=== PATIENT | female | born 1950 | race Caucasian/White ===

== ENCOUNTER 2020-09-13 08:46 | Emergency (ER) | payer OTHER ==
[~2020-09-13] VITALS: Ht 160 cm; Wt 63.5 kg
[2020-09-13] MEDS ORDERED: SODIUM CHLORIDE 0.9% 1,000 ML IV ONE ×2 (09:00)
[2020-09-13 09:10] LABS: Basophils # (auto) 0 10 ^3/uL (0-0.2); Basophils % (auto) 0.8 % (0.0-2.0); Eosinophils # (auto) 0.2 10 ^3/uL (0-0.8); Hematocrit 38.4 % (36.0-46.0); Hemoglobin 12.4 g/dL (12.2-16.2); Lymphocytes # (auto) 2.1 10 ^3/uL (0.4-5.4); Lymphocytes % (auto) 34.7 % (10.0-50.0); Mean Corpuscular Hgb Conc. 32.3 g/dL (32.0-36.0); Mean Corpuscular Volume 95.8 fL (80.0-100.0); Monocytes # (auto) 0.3 10 ^3/uL (0-1.3); Monocytes % (auto) 5.2 % (0.0-12.0); Neutrophils # (auto) 3.4 10 ^3/uL (1.6-8.6); Neutrophils % (auto) 56.3 % (37.0-80.0); Nucleated Red Blood Cells % 0.2 %; Platelet Count (auto) 246 10^3/uL (140-450); Red Blood Cells 4.01 10^6/uL (4.0-5.20); Red Cell Distribution Width 14.5 % (11.8-14.3)
[2020-09-13 09:31] LABS: Alanine Aminotransferase 17 U/L (13-56); Albumin 4.2 g/dL (3.4-5.0); Anion Gap 6 (5-15); Aspartate Aminotransferase 17 U/L (15-37); BUN/Creatinine Ratio 27.9; Blood Urea Nitrogen 19 mg/dL (7-18); Calcium 9.1 mg/dL (8.5-10.1); Carbon Dioxide 27 mmol/L (21-32); Chloride 110 mmol/L (98-107); GFR African American 110 mL/min; GFR Non-African American 91 mL/min; Glucose 176 mg/dL (74-106); Potassium 3.4 mmol/L (3.5-5.1); Sodium 143 mmol/L (136-145)
[2020-09-13 09:36] LABS: Alkaline Phosphatase 69 U/L (45-117); Bilirubin, Total 0.4 mg/dL (0.2-1.0)
[2020-09-13 09:44] LABS: Partial Thromboplastin Time 24.3 sec (23.0-31.2)
[2020-09-13] MEDS ORDERED: cefTRIAXone 1GM/50ML D5W 50 ML IV ONE (12:45)
[2020-09-13] MEDS ORDERED: AZITHROMYCIN 500MG/ 250ML 250 ML IV ONE (12:45)
[2020-09-13 14:01] VITALS: BP 153/52
[2020-09-13 14:47] LABS: Alcohol, Urine < 3.0 mg/dL (0-10); Amphetamine Screen, Urine POSITIVE (NEGATIVE); Barbiturate Scree,Urine NEGATIVE (NEGATIVE); Benzodiazephine Screen, Urine POSITIVE (NEGATIVE); Cannabinoid Screen, Urine NEGATIVE (NEGATIVE); Cocaine Screen, Urine NEGATIVE (NEGATIVE); Opiate Scree,Urine NEGATIVE (NEGATIVE); Phencyclidine Screen, Urine NEGATIVE (NEGATIVE)
[2020-09-13 14:48] LABS: Urine Bacteria NONE SEEN /hpf (None Seen); Urine Blood Negative /uL (Negative); Urine Mucus FEW (None Seen); Urine Specific Gravity 1.018 (1.001-1.035); Urine WBC 5 /hpf (0 - 5)
[2020-09-13] MEDS ORDERED: POTASSIUM EFFERVESENT TAB 25 MEQ PO ONE (15:00)
== END 2020-09-13 15:19 | disposition home or self-care (01) ==
LOC: ER 08:46 → EDBD 08:46 → ER 15:19
DX: J18.9 Pneumonia, unspecified organism (principal); E11.65 Type 2 diabetes mellitus with hyperglycemia; E86.0 Dehydration; E87.6 Hypokalemia; I10 Essential (primary) hypertension; F17.210 Nicotine dependence, cigarettes, uncomplicated; Z20.828 Contact with and (suspected) exposure to other viral communicable diseases
CPT/HCPCS: 36415; 70450; 71045; 80053; 80307; 81001; 83880; 84484; 85025; 85610; 85730; 87426; 93005; 96361; 96365; 96366; 96368; 99284; C9803; J0456; J0696; U0003

== ENCOUNTER 2025-02-07 14:43 | Inpatient (IN) | payer OTHER ==
[~2025-02-07] VITALS: Ht 157.5 cm; Wt 67.3 kg
[~2025-02-07 14:43] MED LIST: BENZ1TAB6 PO; DAPA1TAB4 PO; DONE1TAB88 PO; EZET-10 PO; HYDR50TA32 PO; LAMO25TA27 PO; METF-372 PO; METO25TA93 PO; PANT40T PO; QUET100T47 PO; SIMV40TA18 PO; TOPI50TA53 PO; TRAZ1TAB12 PO
--- NOTE | 2025-02-07 14:53 | ECG ---
[facility] Test Date: 2025-02-07 Test Time: 14:51:10 Pat Name: STEVIE VEE Department: ED Room: 0221T Gender: F Feed Management Advisor: faisal : 1950 Requested By: CHIN PARKER Order Number: [id number] Reading MD: Bulmaro Jaramillo Measurements Intervals [place] Rate: 62 P: 42 NM: 139 QRS: -11 QRSD: 105 T: 15 QT: 455 QTc: 462 Interpretive Statements Sinus rhythm Anteroseptal infarct, age indeterminate Electronically Signed On 02-10-2025 12:57:49 PDT by Bulmaro Jaramillo Please click the below link to view image of tracing.
[2025-02-07] MEDS: SODIUM CHLORIDE 0.9% 1,000 ML IV ONE (15:00)
[2025-02-07 15:17] LABS: Basophils # (auto) 0.1 10 ^3/uL (0-0.2); Basophils % (auto) 0.7 % (0.0-2.0); Eosinophils # (auto) 0.2 10 ^3/uL (0-0.8); Eosinophils % (auto) 3.1 % (0.0-7.0); Hematocrit 38.8 % (36.0-46.0); Hemoglobin 12.9 g/dL (12.2-16.2); Lymphocytes # (auto) 2.1 10 ^3/uL (0.4-5.4); Lymphocytes % (auto) 26.7 % (10.0-50.0); Mean Corpuscular Hemoglobin 30.1 pg (28.0-32.0); Mean Corpuscular Hgb Conc. 33.2 g/dL (32.0-36.0); Mean Corpuscular Volume 90.8 fL (80.0-100.0); Monocytes # (auto) 0.6 10 ^3/uL (0-1.3); Monocytes % (auto) 8.3 % (0.0-12.0); Neutrophils # (auto) 4.7 10 ^3/uL (1.6-8.6); Neutrophils % (auto) 61.2 % (37.0-80.0); Platelet Count (auto) 229 10^3/uL (140-450); Red Blood Cells 4.27 10^6/uL (4.0-5.20); White Blood Cell 7.7 10^3/uL (4.4-10.8)
[2025-02-07 15:26] LABS: Chloride 103 mmol/L (98-107); Sodium 140 mmol/L (136-145)
[2025-02-07 15:27] LABS: Anion Gap 10 (5-15); Calcium 9.8 mg/dL (8.7-10.4); Carbon Dioxide 27 mmol/L (20-31)
[2025-02-07 15:30] VITALS: PULSE 51; RESP 16; O2SAT 94
[2025-02-07 15:32] LABS: BUN/Creatinine Ratio 16.1 (10.0-20.0); Blood Urea Nitrogen 20 mg/dL (9-23)
[2025-02-07 15:33] LABS: Blood Alcohol < 3.0 mg/dL (<10); Glucose 131 mg/dL (74-106); Potassium 3.1 mmol/L (3.5-5.1)
--- NOTE | 2025-02-07 15:33 | ED.PDOC ---
History of Present Illness HPI Comments This is a 74-year-old female who comes in with chief complaint of generalized weakness times approximately two weeks. The patient's symptoms seemed to worsened today and the patient was also having some dizziness. When the paramedics transported the patient she stated that she has been having frequent falls. She did have a normal blood pressure and an Accu-Chek was 141. She currently lives with her family and seems to be somewhat confused in giving us her history. She does admit to vaping and it was unclear if she has been drinking any alcohol. Chief Complaint: General Weakness Time Seen by MD: 14:45 Reviewed Notes: Nurses Notes, Pointing Machine Operator Notes, Medications Allergies: Coded Allergies: NO KNOWN ALLERGIES (Unverified , 09/13/20) Information Source: Patient (The patient was somewhat confused), Emergency Med Personnel Mode of Arrival: EMS Severity: Moderate Timing: Weeks Duration: Since onset Prehospital treatment: 12 Lead EKG, Accucheck (141), Recovery Manager, IVF Associated signs and symptoms No associated nausea or vomiting but the patient was having some dizziness Past Medical History PAST MEDICAL HISTORY: DM, High Lipids, HTN Surgical History: Cholecystectomy, Tonsillectomy Surgical History (Other): Cataract surgery PRESIDING STEWARD History: No Pertinent PRESIDING STEWARD History Family History Family History: Reviewed,noncontributory to illness Social History Smoker: Other (VAPE) Alcohol: Denies ETOH Use Drugs: Denies Drug Use Lives In: Home Constitutional: reports: weakness; denies: chills, diaphoresis, fatigue, fever, malaise, sweats, others EENTM: denies: blurred vision, double vision, ear bleeding, ear discharge, ear drainage, ear pain, ear ringing, eye pain, eye redness, hearing loss, mouth pain, mouth swelling, nasal discharge, nose bleeding, nose congestion, nose pain, photophobia, tearing, throat pain, throat swelling, voice changes, others Respiratory: denies: cough, hemoptysis, orthopnea, SOB at rest, shortness of breath, SOB with excertion, stridor, wheezing, others Cardiovascular: denies: chest pain, dizzy spells, diaphoresis, Dyspnea on exertion, edema, irregular heart beat, left arm pain, lightheadedness, palpitations, PND, syncope, others Gastrointestinal: denies: abdomen distended, abdominal pain, blood streaked bowels, constipated, diarrhea, dysphagia, difficulty swallowing, hematemesis, melena, nausea, poor appetite, poor fluid intake, rectal bleeding, rectal pain, vomiting, others Genitourinary: denies: abnormal vagina bleeding, burning, dyspareunia, dysuria, flank pain, frequency, hematuria, incontinence, pain, , vagina discharge, urgency, others Neurological: reports: dizziness, headache; denies: fainting, left sided numbne ss, left sided weakness, numbness, paresthesia, pre-existing deficit, right sided numbness, right sided weakness, seizure, speech problems, tingling, tremors, weakness, others Musculoskeletal: denies: back pain, gout, joint pain, joint swelling, muscle pain, muscle stiffness, neck pain, others Integumetry: denies: bruises, change in color, change in hair/nails, dryness, laceration, lesions, lumps, rash, wounds, others Allergic/Immunocompromised: denies: Difficulty Healing, Frequent Infections, Hives, Itching, others Hematologic/Lymphatic: denies: anemia, blood clots, easy bleeding, easy bruising, swollen glands, others Endocrine: denies: excessive hunger, excessive sweating, excessive thirst, excessive urination, flushing, intolerance to cold, intolerance to heat, unexplained weight gain, unexplained weight loss, others Psychiatric: denies: anxiety, bipolar disorder, depression, hopeless, panic disorder, schizophrenia, sleepless, suicidal, others Physical Exam General Appearance: Moderate Distress HEENT: Pale Conjuntivae (L), Pale Conjuntivae (R), Pharynx Normal, TMs Normal, Other (Mild bruising to the facial area) Neck: Full Range of Motion, Non-Tender, Normal, Normal Inspection Respiratory: Chest Non-Tender, Lungs Clear, No Accessory Muscle Use, No Respiratory Distress, Normal Breath Sounds Cardiovascular: No Edema, No JVD, No Murmur, No Gallop, Normal Peripheral Pulses, Regular Rate/Rhythm Breast Exam: Deferred Gastrointestinal: No Organomegaly, Non Tender, No Pulsatile Mass, Normal Bowel Sounds, Soft Genitalia: Deferred Pelvic: Deferred Rectal: Deferred Extremities: No calf tenderness, Normal capillary refill, No pedal edema Musculoskeletal : Apperance: Normal Neurologic: hotel server II-XII nml as Tested, Motor Weakness, No Sensory Deficits, Other (The patient was somewhat confused) Cerebellar Function: Normal Reflexes: Normal Skin: Dry, Pallor, Warm Lymphatic: No Adenopathy Was a procedure done? Was a procedure done?: No EKG EKG : Pulse Rate (adult): 62 [place]: Normal Cardiac Rhythm: NSR Block: None ST: Nonsp Differential Dx Considerations may include: Sepsis, dehydration, electrolyte imbalance, UTI, alcohol intoxication X-Ray, Labs, Meds, VS Vital Signs Date Time Temp Pulse Resp B/P (MAP) Pulse Ox O2 Delivery O2 Flow Rate FiO2 02/07/25 18:22 102/30 02/07/25 18:17 16 93 Nasal Cannula* 2 28 02/07/25 18:00 57 16 102/30 (54) 97 02/07/25 16:00 44 02/07/25 15:37 62 02/07/25 15:30 51 16 94 Nasal Cannula* 6 44 02/07/25 15:30 98.1 51 16 114/31 (58) 94 98.1 02/07/25 14:54 98.1 65 18 131/72 (91) 98 98.1 02/07/25 14:51 62 Lab Test 02/07/25 15:57 02/07/25 15:03 02/07/25 14:55 Range/Units Troponin I High Sensitivity 8 8 </=34 ng/L White Blood Count 7.7 4.4-10.8 10^3/uL Red Blood Count 4.27 4.0-5.20 10^6/uL Hemoglobin 12.9 12.2-16.2 g/dL Hematocrit 38.8 36.0-46.0 % Mean Corpuscular Volume 90.8 80.0-100.0 fL Mean Corpuscular Hemoglobin 30.1 28.0-32.0 pg Mean Corpuscular Hemoglobin Concent 33.2 32.0-36.0 g/dL Red Cell Distribution Width 16.0 H 11.8-14.3 % Platelet Count 229 140-450 10^3/uL Mean Platelet Volume 7.8 6.9-10.8 fL Neutrophils (%) (Auto) 61.2 37.0-80.0 % Lymphocytes (%) (Auto) 26.7 10.0-50.0 % Monocytes (%) (Auto) 8.3 0.0-12.0 % Eosinophils (%) (Auto) 3.1 0.0-7.0 % Basophils (%) (Auto) 0.7 0.0-2.0 % Neutrophils # (Auto) 4.7 1.6-8.6 10 ^3/uL Lymphocytes # (Auto) 2.1 0.4-5.4 10 ^3/uL Monocytes # (Auto) 0.6 0-1.3 10 ^3/uL Eosinophils # (Auto) 0.2 0-0.8 10 ^3/uL Basophils # (Auto) 0.1 0-0.2 10 ^3/uL Nucleated Red Blood Cells 0.0 % Sodium Level 140 136-145 mmol/L Potassium Level 3.1 L 3.5-5.1 mmol/L Chloride Level 103 98-107 mmol/L Carbon Dioxide Level 27 20-31 mmol/L Anion Gap 10 5-15 Blood Urea Nitrogen 20 9-23 mg/dL Creatinine 1.24 H 0.550-1.02 mg/dL Glomerular Filtration Rate Calc 46 >90 mL/min BUN/Creatinine Ratio 16.1 10.0-20.0 Serum Glucose 131 H 74-106 mg/dL Lactic Acid Level 1.9 0.4-2.0 mmol/L Calcium Level 9.8 8.7-10.4 mg/dL B-Type Natriuretic Peptide 82.58 0-100 pg/mL Plasma/Serum Blood Alcohol < 3.0 <10 mg/dL POC Glucose 141 H 70-106 mg/dl Current Medications Medications (Trade) Dose Ordered Sig/Jose Route Start Time Stop Time Status Last Admin Sodium Chloride 1,000 ml @ 150 mls/hr Q6H40M ONCE IV 02/07/25 15:00 02/07/25 21:39 02/07/25 15:00 Potassium Chloride 50 ml @ 25 mls/hr ONCE ONCE IV 02/07/25 17:30 02/07/25 19:29 02/07/25 17:49 Ipratropium [place] (Atrovent Medneb) 0.5 mg ONCE ONCE NEB 02/07/25 17:45 02/07/25 18:04 DC 02/07/25 18:17 Albuterol (Ventolin Medneb) 2.5 mg ONCE ONCE NEB 02/07/25 17:45 02/07/25 18:04 DC 02/07/25 18:17 Ceftriaxone Sodium 50 ml @ 100 mls/hr ONCE ONCE IV 02/07/25 18:00 02/07/25 18:29 DC 02/07/25 18:21 Methylprednisolone Sodium Succinate (Solu Medrol) 80 mg ONCE ONCE IV 02/07/25 18:00 02/07/25 18:04 DC 02/07/25 18:21 Furosemide (Lasix Injection) 40 mg ONCE ONCE IV 02/07/25 18:00 02/07/25 18:04 DC 02/07/25 18:22 TECHNIQUE: Single AP portable chest radiograph was obtained. IMPRESSION: 1. Blunting of the costophrenic angles bilaterally, suspected small bilateral pleural effusions with overlying atelectasis. 2. Prominence of the pulmonary vasculature suggesting a degree of pulmonary vascular congestion. Correlate with clinical findings. Procedure: CT HEAD WITHOUT CONTRAST Impression: No evidence of acute intracranial abnormality. The patient's CBC is within normal limits The chemistry panel shows hypokalemia at 3.1 The patient was glucose is within normal limits The patient was being given potassium here in the emergency department's The patient was creatinine level is 1.24 The patient's diagnosis metabolic encephalopathy A Millre catheter has been ordered We are still awaiting the urine test on this patient The patient was being admitted to the hospitalist. Images Reviewed?: Images reviewed and evaluated by me Time of 1ST Reevaluation: 15:36 Reevaluation 1ST: Unchanged Patient Education/Counseling: Diagnosis, Treatment, Prognosis Family Education/Counseling: No Family Present Departure 1 Departure Time of Disposition: 19:07 Impression: Primary Impression: Metabolic encephalopathy Additional Impressions: Generalized weakness Pulmonary vascular congestion Disposition: 09 ADMITTED INPATIENT Admit to: Tele Condition: Fair Critical Care Note Critical Care Time?: Yes (45 min-critical care time only) Stability Stability form required: Yes Unstable for transfer: Telemetry monitoring (Telemetry monitoring required), ED Physician Assesment (Clinical assesment) Heart Score Heart Score: Heart Score Response (Comments) Value History N/A 0 EKG N/A 0 Age N/A 0 Risk Factors N/A 0 Troponin N/A 0 Total 0 I personally scribed for CHIN PARKER MD ([email or web address]) on 02/07/25 at 16:34. Electronically submitted by Anayeli Aldrich (JO ANN). I personally scribed for CHIN PARKER MD ([email or web address]) on 02/07/25 at 18:05. Electronically submitted by Anayeli Aldrich (JO ANN). CHIN PARKER MD Feb 07, 2025 15:33
--- NOTE | 2025-02-07 16:16 | DVH ---
CLINICAL INFORMATION: 74 years old, Female; weakness. TECHNIQUE: Single AP portable chest radiograph was obtained. COMPARISON: CHEST PORTABLE on DOS: 09/13/20 FINDINGS: Lungs: Minimal blunting of the costophrenic angles bilaterally, possible small bilateral pleural effu sions with overlying atelectasis. Cardiac: Cardiac silhouette is at the upper limits of normal in size, likely accentuated due to shirlene ble AP technique. Pulmonary vasculature: Mild prominence of the pulmonary vasculature. Mediastinum/dominique: Moderate atherosclerotic calcification of the aortic arch. Bones: No acute osseous abnormality identified. Other: No other significant findings. IMPRESSION: 1. Blunting of the costophrenic angles bilaterally, suspected small bilateral pleural effusions with overlying atelectasis. 2. Prominence of the pulmonary vasculature suggesting a degree of pulmonary vascular congestion. Red elate with clinical findings.
[2025-02-07] MEDS ORDERED: POTASSIUM CHL 20MEQ/100ML 100 ML IV ONE (17:15)
--- NOTE | 2025-02-07 17:38 | DVH ---
Procedure: CT HEAD WITHOUT CONTRAST Study Date and Requested Time: 02/07/2025 05:02 PM History: weakness Comparison: HEAD WITHOUT CONTRAST on DOS: 09/13/20 Dose: CTDI: 57.8 mGy DLP: 1139.09 mGycm Technique: Multiplanar images obtained through the brain without intravenous contrast. Findings: Normal brain volume and formation. Mild chronic small vessel ischemic changes. Bilateral basal gangli a physiologic calcification. No hemorrhages, masses, mass effect, midline shift, herniation or cytotoxic edema following a large v ascular territory. No intra-axial or extra-axial fluid collections. No evidence of hydrocephalus. The basal cisterns are patent. The pituitary gland, sella and parasellar regions are unremarkable. The cerebellar tonsils are in nor mal position. The cerebellum is unremarkable. The orbits and globes are unremarkable. The paranasal sinuses and mastoids are clear. There are no wo rrisome calvarial lesions. Impression: No evidence of acute intracranial abnormality.
[2025-02-07] MEDS: POTASSIUM CHL 20MEQ/50ML 50 ML IV ONE (17:49)
[2025-02-07] MEDS: ALBUTEROL SULF 2.5 MG/0.5ML(0.5%) NEB SOLN NEB ONE (18:17)
[2025-02-07] MEDS: IPRATROPIUM BROM 0.5 MG/2.5ML INH SOL NEB ONE (18:17)
[2025-02-07] MEDS: IPRATROPIUM BROM 0.5 MG/2.5ML INH SOL ONE (18:18)
[2025-02-07] MEDS: ALBUTEROL SULF 2.5 MG/0.5ML(0.5%) NEB SOLN ONE (18:18)
[2025-02-07] MEDS: cefTRIAXone 1GM/50ML D5W 50 ML IV ONE (18:21)
[2025-02-07] MEDS: methylPREDNISolone SOD SUCC 125 MG/2 ML VL IV ONE (18:21)
[2025-02-07] MEDS: FUROSEMIDE 40 MG/4 ML VIAL IV ONE (18:22)
[2025-02-07 19:28] LABS: Urine Bacteria None Seen /hpf (None Seen)
[2025-02-07 19:30] VITALS: PULSE 56; RESP 15; O2SAT 90
[2025-02-07 19:33] LABS: Urine Blood Negative /uL (Negative); Urine Clarity Clear (Clear); Urine Color Light-Yellow (Yellow); Urine Protein, UAD Negative (Negative); Urine Specific Gravity 1.012 (1.001-1.035); Urine Squamous Epithelial Cell None Seen /hpf (<5); Urine Urobilinogen Normal (Negative); Urine WBC 1 /HPF (0-5)
[2025-02-07 19:47] LABS: Amphetamine Screen, Urine Neg (NEGATIVE); Barbiturate Scree,Urine Neg (NEGATIVE); Benzodiazephine Screen, Urine Neg (NEGATIVE); Cannabinoid Screen, Urine Neg (NEGATIVE); Cocaine Screen, Urine Neg (NEGATIVE); Opiate Scree,Urine Neg (NEGATIVE); Phencyclidine Screen, Urine Neg (NEGATIVE)
[2025-02-07 20:12] LABS: COVID19 ANTIGEN SOFIA FIA NEGATIVE (NEGATIVE); Rapid Influenza A Negative (Negative); Rapid Influenza B Negative (Negative)
[2025-02-07 22:07] LABS: Phosphorus 3.4 mg/dL (2.4-5.1)
--- NOTE | 2025-02-07 23:06 | DVHHPRES ---
History of Present Illness Resident Creating Document: TESSY DANG RESIDENT History of Present Illness Louisa Caldwell is a 74-year-old female presented to the ED with a chief complaint of cognitive and memory deficit and generalized weakness. Patient's has been reports that since the last 3-4 months patient has been having declining cognition and worsening memory function but it has gotten worse in the last 2 weeks with the associated difficulty walking with the patient taking short shuffling steps, associated with the flu-like symptoms of body aches and generalized weakness. Patient reports that she forgets recent things and her long-term memory is intact. Past medical history of COPD, hypertension, heart failure, paroxysmal AFib (chads Vasc 4 /Has bled 2), major depressive disorder, bipolar disorder Past surgical history: None Social history: Patient is an ex-smoker with 45 pack year smoking history, currently vapes nicotine, denies alcohol or any other drug use Home medications: Patient does not remember the medications and following medications were seen on the med reconciliation, simvastatin, Trelegy inhaler, lamotrigine, trazodone 150 mg, sertraline 150 mg, Farxiga 10 mg, quetiapine 50 q.d., 400 Q HS, donepezil 10 mg, metoprolol succinate 25 mg once daily, metformin 1000 mg b.i.d., ezetimibe 10 mg, topiramate 50 mg Past Medical History As per HPI Past Surgical History As per HPI Family History Patient was adopted and does not know about her family history Review of Systems Review of Systems Patient complains of feeling weak Denies nausea, vomiting, dysuria, headache, chest pain, shortness of breath Allergies: Coded Allergies: NO KNOWN ALLERGIES (Unverified , 09/13/20) Exam Vital Signs Vital Signs Date Time Temp Pulse Resp B/P (MAP) Pulse Ox O2 Delivery O2 Flow Rate FiO2 02/07/25 20:00 54 02/07/25 18:22 102/30 02/07/25 18:17 16 93 Nasal Cannula* 2 28 02/07/25 15:30 98.1 98.1 Exam Constitutional: Patient is alert and oriented to place, person, month but disoriented to day, date, year Gen - no pallor, no icterus, no cyanosis, no clubbing, no LAD, no edema . Skin - Patients skin is warm and dry.. HEENT - normocephalic, atraumatic, moist mucous membranes. Neck - full ROM, no LAD, JVP waveform is not seen. Pulmonary - B/L vesicular breath sounds. no crackles , no wheezing, no stridor. cardiovascular - normal S1,S2 heard. no murmurs heard. peripheral pulses normal radial 2+, pedal 2+. capillary refill normal <2 secs. GI - soft abdomen. no tenderness to deep palpation . no hepatospleenomegaly. Neurological - Patient is A/O X 3 . Bilateral upper extremity strength 4/5, bilateral lower extremity strength 5/5, no facial droop, normal speech, no tremor, no sensory deficiets. Labs/Xrays Labs Test 02/07/25 18:40 02/07/25 15:57 02/07/25 15:03 02/07/25 14:55 Range/Units Urine Color Light-yellow Yellow Urine Clarity Clear Clear Urine pH 6.0 5.0-9.0 Urine Specific [place] 1.012 1.001-1.035 Urine Protein Negative Negative Urine Ketones Negative Negative Urine Blood Negative Negative /uL Urine Nitrite Negative Negative Urine Bilirubin Negative Negative Urine Urobilinogen Normal Negative mg/dL Urine Leukocyte Esterase Negative Negative /uL Urine RBC <1 0 - 4 /hpf Urine Microscopic WBC 1 0-5 /HPF Urine Squamous Epithelial Cells None seen <5 /hpf Urine Bacteria None seen None Seen /hpf Urine Glucose Normal Normal mg/dL Urine Opiates Screen Neg NEGATIVE Urine Fentanyl Screen Neg NEGATIVE Urine Barbiturates Screen Neg NEGATIVE Urine Phencyclidine Screen Neg NEGATIVE Urine Amphetamines Screen Neg NEGATIVE Urine Benzodiazepines Screen Neg NEGATIVE Urine Cocaine Screen Neg NEGATIVE Urine Cannabinoids Screen Neg NEGATIVE Influenza Type A Antigen Negative Negative Influenza Type B Antigen Negative Negative SARS-CoV-2 Antigen (Rapid) Negative NEGATIVE Troponin I High Sensitivity 8 </=34 ng/L White Blood Count 7.7 4.4-10.8 10^3/uL Red Blood Count 4.27 4.0-5.20 10^6/uL Hemoglobin 12.9 12.2-16.2 g/dL Hematocrit 38.8 36.0-46.0 % Mean Corpuscular Volume 90.8 80.0-100.0 fL Mean Corpuscular Hemoglobin 30.1 28.0-32.0 pg Mean Corpuscular Hemoglobin Concent 33.2 32.0-36.0 g/dL Red Cell Distribution Width 16.0 H 11.8-14.3 % Platelet Count 229 140-450 10^3/uL Mean Platelet Volume 7.8 6.9-10.8 fL Neutrophils (%) (Auto) 61.2 37.0-80.0 % Lymphocytes (%) (Auto) 26.7 10.0-50.0 % Monocytes (%) (Auto) 8.3 0.0-12.0 % Eosinophils (%) (Auto) 3.1 0.0-7.0 % Basophils (%) (Auto) 0.7 0.0-2.0 % Neutrophils # (Auto) 4.7 1.6-8.6 10 ^3/uL Lymphocytes # (Auto) 2.1 0.4-5.4 10 ^3/uL Monocytes # (Auto) 0.6 0-1.3 10 ^3/uL Eosinophils # (Auto) 0.2 0-0.8 10 ^3/uL Basophils # (Auto) 0.1 0-0.2 10 ^3/uL Nucleated Red Blood Cells 0.0 % Sodium Level 140 136-145 mmol/L Potassium Level 3.1 L 3.5-5.1 mmol/L Chloride Level 103 98-107 mmol/L Carbon Dioxide Level 27 20-31 mmol/L Anion Gap 10 5-15 Blood Urea Nitrogen 20 9-23 mg/dL Creatinine 1.24 H 0.550-1.02 mg/dL Glomerular Filtration Rate Calc 46 >90 mL/min BUN/Creatinine Ratio 16.1 10.0-20.0 Serum Glucose 131 H 74-106 mg/dL Lactic Acid Level 1.9 0.4-2.0 mmol/L Calcium Level 9.8 8.7-10.4 mg/dL B-Type Natriuretic Peptide 82.58 0-100 pg/mL Plasma/Serum Blood Alcohol < 3.0 <10 mg/dL POC Glucose 141 H 70-106 mg/dl Assessment/Plan Assessment/Plan Assessment Acute on chronic hypoxic respiratory failure ?COPD exacerbation likely due to pneumonitis h/o CHF, no exacerbation Generalized weakness Cognitive deficit with [place] cognitive assessment 21 points PANCHITO on CKD likely due to VMN Bilateral sub Katie intertrigo H/O MDD H/O bipolar disorder Chest x-ray shows pulmonary vascular congestion and right lower atelectasis, b lunting of bilateral CP angles Head CT showed no acute intracranial abnormality Plan - on oxygen via nasal cannula - duonebs q6hr - telemetry - echo pending - azithrommycin 500mg qd - continued on seroquel, sertraline, topiramate - 1L fluid given - Indicated clotrimazole in effective area Goals of care discussed with the patient and her for over 25 mins.. Full code Plan discussed with Plan discussed with: Patient, Other (nurses) My Orders Orders - TESSY DANG Procedure Category Date Status Time Admit ADMIT 02/07/25 Transmitted 21:41 Oxygen By Nasal RT 02/07/25 Transmitted Cannula 21:41 Stat Ekg For Chest AAMNDA 02/07/25 In Process Pain 21:41 Notify Md Of Changes AMANDA 02/07/25 In Process From Base 21:41 Inpatient Nursing Aide For AMANDA 02/07/25 In Process 24 Hours 21:41 Emergency Dysrhythmia AMANDA 02/07/25 In Process Protocol 21:41 Rhythm Strips Once AMANDA 02/07/25 In Process Every Shift 21:41 Drug Screen LAB 02/07/25 Logged 21:41 Vitamin D, 25-Hydroxy LAB 02/07/25 In Process 21:41 Vitamin B12 LAB 02/07/25 In Process 21:41 Thyroid Stimulating LAB 02/07/25 In Process Hormone 21:41 Phosphorus LAB 02/07/25 In Process 21:41 Magnesium LAB 02/07/25 In Process 21:41 Hemoglobin A1c LAB 02/07/25 In Process 21:41 Complete Blood Count LAB 02/08/25 Verified 04:00 Comprehensive LAB 02/08/25 Verified Metabolic Panel 04:00 PTPTT LAB 02/08/25 Verified 04:00 Date of Service: Feb 07, 2025 Billing Provider: STEVIE HURTADO MD Common Visit Codes: 38234-GUDLCFZ INP/OBS CARE (HIGH) Secondary Visit Codes: 56501-[id number] CARE PLAN 30 MINUTES TESSY DANG RESIDENT Feb 07, 2025 23:06 AUGUSTINE MORALES RESIDENT Feb 08, 2025 02:59 STEVIE HURTADO MD Feb 08, 2025 10:55
[2025-02-07] MEDS: TOPIRAMATE 25 MG TAB PO ONE (23:52)
[2025-02-07] MEDS: DONEPEZIL HYDROCHLORIDE 5 MG TAB PO ONE (23:52)
[2025-02-07] MEDS: AZITHROMYCIN 500MG/ 250ML 250 ML IV ONE (23:52)
[2025-02-07] MEDS: ATORVASTATIN 20 MG TAB PO ONE (23:53)
[2025-02-07] MEDS: ENOXAPARIN SOD 40 MG/0.4 ML SYRINGE SC ONE (23:59)
[2025-02-08] VITALS (16 sets, daily range): BP systolic 112–132; BP diastolic 33–73; PULSE 59–74; RESP 16–19; TEMP 97.7–99.3; O2SAT 91–100
[2025-02-08] MEDS: QUEtiapine FUMARATE 100 MG TAB PO ONE (00:03)
[2025-02-08] MEDS: IPRATROPIUM BROM 0.5 MG/2.5ML INH SOL NEB SCH (00:04)
[2025-02-08] MEDS: ALBUTEROL SULF 2.5 MG/0.5ML(0.5%) NEB SOLN NEB SCH (00:04)
[2025-02-08] MEDS: EZETIMIBE 10 MG TAB PO ONE (00:13)
[2025-02-08] MEDS ORDERED: POTASSIUM CHL 20MEQ/100ML 100 ML IV SCH (03:15)
[2025-02-08] MEDS ORDERED: AMLO1TAB21 PO (03:24)
[2025-02-08] MEDS ORDERED: HYDR12.59 PO (03:24)
[2025-02-08] MEDS ORDERED: SERT25TA28 PO (03:24)
[2025-02-08] MEDS: POTASSIUM CHL 20MEQ/50ML 50 ML IV SCH (04:30)
[2025-02-08] MEDS: CLOTRIMAZOLE 1 % CREAM 15GM TOP ONE (06:40)
[2025-02-08] MEDS: TOPIRAMATE 25 MG TAB PO SCH (09:17)
[2025-02-08] MEDS: SERTRALINE HCL 50 MG TAB PO SCH (09:17)
[2025-02-08] MEDS: CLOTRIMAZOLE 1 % CREAM 15GM TOP SCH (09:18)
[2025-02-08] MEDS: EZETIMIBE 10 MG TAB PO SCH (09:18)
[2025-02-08] MEDS: methylPREDNISolone SOD SUCC 40 MG/ML VL IV SCH (10:00)
[2025-02-08] MEDS ORDERED: ENOXAPARIN SOD 40 MG/0.4 ML SYRINGE SC SCH (10:00)
[2025-02-08 10:11] LABS: Basophils # (auto) 0 10 ^3/uL (0-0.2); Basophils % (auto) 0.2 % (0.0-2.0); Eosinophils # (auto) 0 10 ^3/uL (0-0.8); Eosinophils % (auto) 0.1 % (0.0-7.0); Hematocrit 38.9 % (36.0-46.0); Hemoglobin 12.7 g/dL (12.2-16.2); Lymphocytes # (auto) 1.1 10 ^3/uL (0.4-5.4); Lymphocytes % (auto) 13.4 % (10.0-50.0); Mean Corpuscular Hemoglobin 30.5 pg (28.0-32.0); Mean Corpuscular Hgb Conc. 32.8 g/dL (32.0-36.0); Mean Corpuscular Volume 93.1 fL (80.0-100.0); Monocytes # (auto) 0.5 10 ^3/uL (0-1.3); Monocytes % (auto) 6.4 % (0.0-12.0); Neutrophils # (auto) 6.4 10 ^3/uL (1.6-8.6); Neutrophils % (auto) 79.9 % (37.0-80.0); Nucleated Red Blood Cells % 0.1 %; Platelet Count (auto) 219 10^3/uL (140-450); Red Blood Cells 4.18 10^6/uL (4.0-5.20); Red Cell Distribution Width 16.2 % (11.8-14.3)
[2025-02-08 10:20] LABS: Alanine Aminotransferase 11 U/L (7-40); Alkaline Phosphatase 80 U/L (46-116); Anion Gap 8 (5-15); Aspartate Aminotransferase 19 U/L (13-40); BUN/Creatinine Ratio 20.6 (10.0-20.0); Blood Urea Nitrogen 20 mg/dL (9-23); Calcium 8.9 mg/dL (8.7-10.4); Carbon Dioxide 29 mmol/L (20-31); Chloride 103 mmol/L (98-107); Sodium 140 mmol/L (136-145); Total Protein 6.7 g/dL (5.7-8.2)
[2025-02-08 10:21] LABS: Albumin 4.6 g/dL (3.2-4.8); Bilirubin, Total 0.3 mg/dL (0.2-1.0)
[2025-02-08 10:22] LABS: Glucose 177 mg/dL (74-106); Potassium 3.5 mmol/L (3.5-5.1)
[2025-02-08 10:29] LABS: INR 1.03 (0.9-1.15); Partial Thromboplastin Time 29.4 SEC (24.5-34.5); Prothrombin Time 10.9 sec (9.3-11.8)
[2025-02-08] MEDS: AZITHROMYCIN 500MG/ 250ML 250 ML IV SCH (11:16)
[2025-02-08] MEDS: ENOXAPARIN SOD 100 MG/1 ML SYRINGE SC SCH (11:17)
[2025-02-08 11:19] LABS: T3 Total 0.5 ng/mL (0.60-1.81)
[2025-02-08 11:22] LABS: Free T4 (Free Thyroxine) 0.94 ng/dL (0.89-1.76)
[2025-02-08] MEDS: SODIUM CHLORIDE 0.9% 1,000 ML IV ONE (15:24)
--- NOTE | 2025-02-08 16:18 | DVHPNRES ---
Progress Note Date Seen: Feb 08, 2025 Resident Creating Document: JESSICA MAR RESIDENT Medical Necessity Reason Pt with a Central, PICC or Fol: No The following are medically ne: Miller Catheter Subjective Review of Systems Louisa Caldwell is a 74-year-old female COPD, hypertension, heart failure, paroxysmal AFib (chads Vasc 4 /Has bled 2), major depressive disorder, bipolar disorder presented to the ED with a chief complaint of cognitive and memory deficit and generalized weakness. As per patient and patient went over to her son's house while she was feeling different. Patient was sliding down from the chair, could not keep balance when walking, having dysarthria and feeling tired. Patient reported that this has been going on for almost 3 months but yesterday was really worse. Patient's has been reports that since the last 3-4 months patient has been having declining cognition and worsening memory function but it has gotten worse in the last 2 weeks with the associated difficulty walking with the patient taking short shuffling steps, associated with the flu-like symptoms of body aches and generalized weakness. Patient reports that she forgets recent things and her long-term memory is intact. CXR-Blunting of the costophrenic angles bilaterally, suspected small bilateral pleural effusions with overlying atelectasis. 2. Prominence of the pulmonary vasculature suggesting a degree of pulmonary vascular congestion. Correlate with clinical findings. CT head-No evidence of acute intracranial abnormality. Initial lab workup revealed creatinine 1.2, UDS negative, serum alcohol less than 3.0. Urinalysis negative for UTI. Past medical history of COPD, hypertension, heart failure, paroxysmal AFib (chads Vasc 4 /Has bled 2), major depressive disorder, bipolar disorder Past surgical history: None Social history: Patient is an ex-smoker with 45 pack year smoking history, currently vapes nicotine, denies alcohol or any other drug use Home medications: Patient does not remember the medications and following medications were seen on the med reconciliation, simvastatin, Trelegy inhaler, lamotrigine, trazodone 150 mg, sertraline 150 mg, Farxiga 10 mg, quetiapine 50 q.d., 400 Q HS, donepezil 10 mg, metoprolol succinate 25 mg once daily, metformin 1000 mg b.i.d., ezetimibe 10 mg, topiramate 50 mg Allergy- NKDA Personal History/ Social History- ex-smoker, denies alcohol doing drugs Patient was seen today at the bedside. Cardiovascular- deny acute chest pain or shortness of breath or cough or palpitation Respiratory denies cough or short of breath or wheezing Gastrointestinal- denies any rectal bleeding, nausea or vomiting Musculoskeletal-denies acute joint swelling or tenderness or redness Psychiatry- denies depression or SI or HI Skin- denies acute rash or purpura Objective vital signs Vital Sign Date Time Temp Pulse Resp B/P (MAP) Pulse Ox O2 Delivery O2 Flow Rate FiO2 02/08/25 13:00 98.0 72 18 113/45 (67) 97 98.0 02/08/25 11:45 Nasal Cannula* 4 36 Total Intake and Output 02/07/25 02/07/25 02/08/25 15:00 23:00 07:00 Intake Total 1000 ml 250 ml Output Total 1000 ml 1500 ml Balance 0 ml -1250 ml medications Current Medications Medications Dose Ordered Sig/Jose Route Start Time Stop Time Status Last Admin Dose Admin Albuterol 2.5 mg Q6HR NEB 02/08/25 00:00 02/08/25 11:39 2.5 MG Ipratropium [place] 0.5 mg Q6HR NEB 02/08/25 00:00 02/08/25 11:39 0.5 MG Atorvastatin Calcium 40 mg HS PO 02/08/25 22:00 EZETIMIBE 10 mg DAILY PO 02/08/25 10:00 02/08/25 09:18 10 MG Clotrimazole 1 applic Q12HR TOP 02/08/25 10:00 02/08/25 09:18 1 APPLIC Potassium Chloride 100 ml @ 50 mls/hr Q2H IV 02/08/25 03:15 02/08/25 07:14 UNV Benztropine Mesylate 2 mg BID PO 02/08/25 22:00 Donepezil HCl 10 mg DAILY PO 02/09/25 10:00 Lamotrigine 25 mg BID PO 02/08/25 22:00 Quetiapine Fumarate 400 mg HS PO 02/08/25 22:00 Sertraline HCl 100 mg HS PO 02/09/25 22:00 Topiramate 50 mg HS PO 02/09/25 22:00 Gabapentin 600 mg TID PO 02/08/25 22:00 Rivaroxaban 20 mg QPM PO 02/08/25 18:00 Examination General examination- awake, alert, oriented HEENT- PEERLA, no acute nasal discharge Cardiovascular- S1-S2 audible, rate and rhythm regular, no murmur Respiratory- CTAB, no wheeze or rhonchi Gastrointestinal-nontender, bowel sound+. Nondistended Musculoskeletal-no acute joint swelling or tenderness or redness Lower extremity- no leg edema Neurological- cranial nerves intact, no acute dysarthria or dysphagia Psychiatry- denies depression or SI or HI Skin- no acute rash or purpura laboratory and microbiology Laboratory Tests 02/08/25 09:48 Test 02/08/25 09:48 Range/Units Serum Glucose 177 H 74-106 mg/dL Problem List/Assessment/Plan Problem List/Assessment/Plan Assessment and plan Suspected TIA, rule out Parkinson disease Shuffling gait, slurring speech, generalized weakness likely due to TIA/Parkinson's disease Acute hypoxic respiratory failure likely due to acute exacerbation of COPD PANCHITO likely due to VMN Prediabetes, HGB A1c 6.1 COPD, hypertension, heart failure, paroxysmal AFib (chads Vasc 4 /Has bled 2), major depressive disorder, bipolar disorder Plan Ordered neurology consult for further evaluation and care to rule out TIA or Parkinson disease Continue nebulization as prescribed Titrate NC O2 as required Continue atorvastatin 40 mg p.o. q.h.s. Continue gabapentin 600 mg p.o. t.i.d. Lamotrigine 25 mg p.o. b.i.d. Xarelto 20 mg p.o. q.p.m. Sertraline 200 mg p.o. HS Seroquel 4 mg p.o. HS Topiramate 50 mg p.o. HS Ordered MRI of the brain Ordered neurology consult for further evaluation and care Goals of care, Code status ; discussed with >15 minutes PUD prophylaxis: Pantoprazole DVT prophylaxis: Xarelto Plan discussed with Dr. Cruz , nursing staff, Total time spent on patient evaluation, chart review, assessment and plan, discussion discussion >35 minutes Plan discussed with: Patient, Other (RN) My Orders My Orders Orders - JESSICA MAR RESIDENT Procedure Category Date Status Time * Neurology Consult CONS 02/08/25 Transmitted 14:56 Pt Request For Service PT 02/08/25 Logged 15:01 Sodium Chloride 0.9% PHA 02/08/25 In Process 15:15 Date of Service: Feb 08, 2025 Billing Provider: SAMUEL HANCOCK MD Common Visit Codes: [id number] INP/OBS CARE(HIGH) JESSICA MAR RESIDENT Feb 08, 2025 16:18 SAMUEL HANCOCK MD Feb 10, 2025 00:32
--- NOTE | 2025-02-08 18:07 | DVHSR ---
APPROVED REPORT EXAM: Two-dimensional and M-mode echocardiogram with Doppler and color Doppler. Blood Pressure: 112/53 mmHg INDICATION Dyspnea SOB RISK FACTORS Height: 5'2", Weight: 147 DIMENSIONS LVDd5.1 (3.8-5.7cm)LA (2D)4.1 (1.9-4.0cm)Aortic Root3.5 (2.0-3.7cm) LVDs3.3 (2.5-4.0cm)LA (MM) (1.9-4.0cm)Aortic Cusp Exc1.6 (1.5-2.0cm) EF (%) 65.0 (55-70%)Rt. Atrium3.9 (1.9-4.0cm)Asc. Aorta cm IVSd1.0 (0.7-1.1cm)RV (D) (1.8-2.4cm) PWd1.0 (0.7-1.1cm) Mitral Valve MitralMitral Stenosis E wave1.32m/sMV Mean GR.mmHg A wave0.97m/sMV Peak GR.mmHg E/A ratio1.42D MVAcm2 DECEL [id number] 1/2 Timems Aortic Valve Aortic ValveAortic Stenosis V11.12m/Jaxon Mean GR.6mmHg V21.76m/Jaxon Peak GR.12mmHg LVOT Diameter1.8 (1.8-2.4cm)Doppler AVA1.62cm2 Pulmonic Valve V21.14m/s Tricuspid Valve TR Velocity3.19m/s [id number] LEFT VENTRICLE Tissue Doppler imaging reveals normal left ventricular function. Left ventricle systolic function is normal. The Ejection Fraction is 60-65%. RIGHT VENTRICLE Normal ATRIA mildly dilated mildly dilated TRICUSPID VALVE moderate pulm htn rvsp 45-50 mmgh Other Information Technically limited study due to body habitus. Conclusion Tissue Doppler imaging reveals normal left ventricular function. Left ventricle systolic function is normal. The Ejection Fraction is 60-65%. There is mild LVH Mild diastolic dysfunction Normal RV function mildly dilated mildly dilated moderate pulm htn rvsp 45-50 mmgh
[2025-02-08] MEDS: PANTOPRAZOLE 40 MG/10 ML VIAL INJ IV ONE (18:41)
[2025-02-08] MEDS: RIVAROXABAN 20 MG TAB PO SCH (18:41)
[2025-02-08] MEDS: DONEPEZIL HYDROCHLORIDE 5 MG TAB PO ONE (18:41)
[2025-02-08] MEDS: QUEtiapine FUMARATE 100 MG TAB PO SCH (21:00)
[2025-02-08] MEDS: BENZTROPINE MESY 0.5 MG TAB PO SCH (21:12)
[2025-02-08] MEDS: GABAPENTIN 300 MG CAP PO SCH (21:13)
[2025-02-08] MEDS: lamoTRIgine 25 MG TAB PO SCH (21:13)
[2025-02-08] MEDS: ATORVASTATIN 20 MG TAB PO SCH (21:14)
[2025-02-08] MEDS ORDERED: DONEPEZIL HYDROCHLORIDE 5 MG TAB PO SCH (22:00)
--- NOTE | 2025-02-08 23:30 | DVHINCON2 ---
Date of service: Feb 08, [address] Crane Reason for Consultation Unable to grab thing/sliding down from chair History of Present Illness Ms. Caldwell is a 74 years old right-handed female with a history of hypertension, diabetes, dyslipidemia, bipolar disorder, COPD, AFib, skin cancer, she was brought to the [facility] on 02/07/2025 with a chief company of general weakness. At that time, she is alert, oriented x3, but is not very good historian Apparently, she was had general weakness for a few weeks, worse in the last few days, and she had falls a few days prior to this hospitalization. The H&P mentioned in the patient was progress cognitive dysfunction over the last several months of time, and her home medication includes donepezil, I can not confirm history of cognitive dysfunction based on today's evaluation. Nurse reports the patient was talking about political issues earlier today UDS, 02/07/2025: Negative Plasma alcohol, 02/07/2025: Normal Urinalysis, 02/07/2025: Unremarkable CBC, 02/08/2025: Unremarkable CMP, 02/08/2025: Unremarkable Vitamin B12, 02/07/25: 505 Folic acid, 02/08/2025: 13.21 FT4, 02/08/25: 0.95 Echocardiogram, 02/08/2025: Tissue Doppler imaging reveals normal left ventricular function. Left ventricle systolic function is normal. The Ejection Fraction is 60-65%. There is mild LVH Mild diastolic dysfunction Normal RV function mildly dilated mildly dilated moderate pulm htn rvsp 45-[address] head, 02/07/2025: No evidence of acute intracranial abnormality. Past Medical History Hypertension, diabetes, dyslipidemia, bipolar disorder, COPD, AFib, skin cancer Past Surgical History Cholecystectomy, cataract surgery, tonsillectomy Family History: Patient reports no known family medical history. Family History She is Adopted Social History She was a tobacco smoker, but no history of drug or alcohol abuse Allergies: Coded Allergies: NO KNOWN ALLERGIES (Unverified , 09/13/20) Home Meds Reported Medications Hydrochlorothiazide (Hydrochlorothiazide) 12.5 Mg Cap, 1 CAP PO DAILY, #30 CAP 5 Refills 02/08/25 Sertraline Hcl (Sertraline Hcl) 25 Mg Tab, 1 TAB PO DAILY, #30 TAB 2 Refills 02/08/25 Amlodipine Besylate (Amlodipine Besylate) 2.5 Mg Tab, 1 TAB PO DAILY, #30 TAB 5 Refills 02/08/25 Current Medications Current Medications Medications (Trade) Dose Ordered Sig/Jose Route PRN Reason Start Time Stop Time Status Last Admin Albuterol (Ventolin Medneb) 2.5 mg Q6HR NEB 02/08/25 00:00 02/08/25 18:42 Ipratropium [place] (Atrovent Medneb) 0.5 mg Q6HR NEB 02/08/25 00:00 02/08/25 18:42 Methylprednisolone Sodium Succinate (Solu Medrol) 40 mg DAILY IV 02/08/25 10:00 02/08/25 15:06 DC Azithromycin 250 ml @ 125 mls/hr DAILY IV 02/08/25 10:00 02/08/25 15:06 DC 02/08/25 11:16 Atorvastatin Calcium (Lipitor) 40 mg HS PO 02/08/25 22:00 02/08/25 21:14 EZETIMIBE (Zetia) 10 mg DAILY PO 02/08/25 10:00 Hold 02/08/25 09:18 Donepezil HCl (Aricept Tablet) 5 mg HS PO 02/08/25 22:00 02/08/25 15:59 DC Sertraline HCl (Zoloft) 150 mg DAILY PO 02/08/25 10:00 02/08/25 15:58 DC 02/08/25 09:17 Topiramate (Topamax) 50 mg DAILY PO 02/08/25 10:00 02/08/25 15:58 DC 02/08/25 09:17 Enoxaparin Sodium (Lovenox) 40 mg DAILY SC 02/08/25 10:00 02/08/25 03:06 DC Clotrimazole (Lotrimin 1% Cream) 1 applic Q12HR TOP 02/08/25 10:00 02/08/25 09:18 Enoxaparin Sodium (Lovenox) 70 mg Q12HR SC 02/08/25 10:00 02/08/25 16:04 DC 02/08/25 11:17 Potassium Chloride 100 ml @ 50 mls/hr Q2H IV 02/08/25 03:15 02/08/25 07:14 UNV Potassium Chloride 50 ml @ 25 mls/hr Q2H IV 02/08/25 03:30 02/08/25 07:29 DC 02/08/25 09:17 Benztropine Mesylate (Cogentin Tablet) 2 mg BID PO 02/08/25 22:00 02/08/25 21:12 Donepezil HCl (Aricept Tablet) 10 mg DAILY PO 02/09/25 10:00 Lamotrigine (LaMICtal TABLET) 25 mg BID PO 02/08/25 22:00 02/08/25 21:13 Quetiapine Fumarate (SEROquel TABLET) 400 mg HS PO 02/08/25 22:00 02/08/25 21:00 Sertraline HCl (Zoloft) 100 mg HS PO 02/09/25 22:00 Topiramate (Topamax) 50 mg HS PO 02/09/25 22:00 Gabapentin (Neurontin Capsule) 600 mg TID PO 02/08/25 22:00 02/08/25 21:13 Rivaroxaban (Xarelto Tablet) 20 mg QPM PO 02/08/25 18:00 02/08/25 18:41 Pantoprazole Sodium (Protonix) 40 mg DAILY IV 02/09/25 10:00 Quetiapine Fumarate (SEROquel TABLET) 100 mg QAM PO 02/09/25 07:00 Review of Systems As above, the other systems are negative Vital Signs Vital Signs Date Time Temp Pulse Resp B/P (MAP) Pulse Ox O2 Delivery O2 Flow Rate FiO2 02/08/25 21:00 99.3 72 18 120/73 (89) 96 99.3 02/08/25 18:42 Nasal Cannula* 3 32 Physical Exam GENERAL EXAM: General: the patient is well developed and nourished. No acute distress. HEENT: Normocephalic, neck is supple, no carotid bruits. No mass. RESPIRATORY: Normal respiratory effort with symmetrical lung expansion. Lungs clear to auscultation. CARDIOVASCULAR: Regular rate and rhythm with no murmurs. S1, S2. ABDOMEN: Soft, nontender, normal bowel sound NEUROLOGICAL: MENTAL STATUS: Awake and alert. Oriented to person, place, time and general circumstances. Poor historian SPEECH, LANGUAGE, HIGHER CORTICAL FUNCTION: no aphasia or dysathria. CRANIAL NERVES: #2: Intact visual rizo to confrontation. The optic discs were sharp. #3,4,6: Pupils are equal, round and reactive. EOMs full and conjugate. No nystagmus. #5: Facial sensation intact in all three divisions bilaterally. Mandibular strength intact. #7: Facial muscles symmetrical and strength intact. #8: Hearing grossly normal to voice. #9,10: Uvula and soft palate rise in the midline. Swallow and voice are normal. #11: Trapezius and sternomastoid strength intact bilaterally. #12: Tongue midline. No fasciculations or atrophy. SENSATION: Sensation to touch and pinprick is normal. MOTOR: Normal tone in the upper and lower extremity. Normal muscle bulk. No fasciculations. Questionable tremors in the arms and posturing. Muscle strength of the major groups in the upper extremities is 5/5. Muscle strength of the major groups in the lower extremities is 5/5. REFLEXES: Deep tendon reflexes normal and symmetrical. No pathological reflex es. CEREBELLAR/COORDINATION: Finger to nose isnormal bilaterally. GAIT/STATION: deferred. Labs/Diagnostic Data Labs Test 02/08/25 09:48 02/07/25 18:40 02/07/25 15:57 02/07/25 15:03 Range/Units White Blood Count 8.0 4.4-10.8 10^3/uL Red Blood Count 4.18 4.0-5.20 10^6/uL Hemoglobin 12.7 12.2-16.2 g/dL Hematocrit 38.9 36.0-46.0 % Mean Corpuscular Volume 93.1 80.0-100.0 fL Mean Corpuscular Hemoglobin 30.5 28.0-32.0 pg Mean Corpuscular Hemoglobin Concent 32.8 32.0-36.0 g/dL Red Cell Distribution Width 16.2 H 11.8-14.3 % Platelet Count 219 140-450 10^3/uL Mean Platelet Volume 7.8 6.9-10.8 fL Neutrophils (%) (Auto) 79.9 37.0-80.0 % Lymphocytes (%) (Auto) 13.4 10.0-50.0 % Monocytes (%) (Auto) 6.4 0.0-12.0 % Eosinophils (%) (Auto) 0.1 0.0-7.0 % Basophils (%) (Auto) 0.2 0.0-2.0 % Neutrophils # (Auto) 6.4 1.6-8.6 10 ^3/uL Lymphocytes # (Auto) 1.1 0.4-5.4 10 ^3/uL Monocytes # (Auto) 0.5 0-1.3 10 ^3/uL Eosinophils # (Auto) 0 0-0.8 10 ^3/uL Basophils # (Auto) 0 0-0.2 10 ^3/uL Nucleated Red Blood Cells 0.1 % Prothrombin Time 10.9 9.3-11.8 sec Prothrombin Time INR 1.03 0.9-1.15 Activated Partial Thromboplast Time 29.4 24.5-34.5 SEC Sodium Level 140 136-145 mmol/L Potassium Level 3.5 3.5-5.1 mmol/L Chloride Level 103 98-107 mmol/L Carbon Dioxide Level 29 20-31 mmol/L Anion Gap 8 5-15 Blood Urea Nitrogen 20 9-23 mg/dL Creatinine 0.97 0.550-1.02 mg/dL Glomerular Filtration Rate Calc 61 >90 mL/min BUN/Creatinine Ratio 20.6 H 10.0-20.0 Serum Glucose 177 H 74-106 mg/dL Calcium Level 8.9 8.7-10.4 mg/dL Total Bilirubin 0.3 0.2-1.0 mg/dL Aspartate Amino Transferase (AST) 19 13-40 U/L Alanine Aminotransferase (ALT) 11 7-40 U/L Alkaline Phosphatase 80 46-116 U/L Total Protein 6.7 5.7-8.2 g/dL Albumin 4.6 3.2-4.8 g/dL Folic Acid 13.21 >5.38 ng/mL Free Thyroxine (T4) Calculated 0.94 0.89-1.76 ng/dL Total Triiodothyronine (TT3) 0.50 L 0.60-1.81 ng/mL Urine Color Light-yellow Yellow Urine Clarity Clear Clear Urine pH 6.0 5.0-9.0 Urine Specific [place] 1.012 1.001-1.035 Urine Protein Negative Negative Urine Ketones Negative Negative Urine Blood Negative Negative /uL Urine Nitrite Negative Negative Urine Bilirubin Negative Negative Urine Urobilinogen Normal Negative mg/dL Urine Leukocyte Esterase Negative Negative /uL Urine RBC <1 0 - 4 /hpf Urine Microscopic WBC 1 0-5 /HPF Urine Squamous Epithelial Cells None seen <5 /hpf Urine Bacteria None seen None Seen /hpf Urine Glucose Normal Normal mg/dL Urine Opiates Screen Neg NEGATIVE Urine Fentanyl Screen Neg NEGATIVE Urine Barbiturates Screen Neg NEGATIVE Urine Phencyclidine Screen Neg NEGATIVE Urine Amphetamines Screen Neg NEGATIVE Urine Benzodiazepines Screen Neg NEGATIVE Urine Cocaine Screen Neg NEGATIVE Urine Cannabinoids Screen Neg NEGATIVE Influenza Type A Antigen Negative Negative Influenza Type B Antigen Negative Negative SARS-CoV-2 Antigen (Rapid) Negative NEGATIVE Troponin I High Sensitivity 8 </=34 ng/L Hemoglobin A1c 6.1 H <5.7 % A1C Lactic Acid Level 1.9 0.4-2.0 mmol/L Phosphorus Level 3.4 2.4-5.1 mg/dL Magnesium Level 2.0 1.6-2.6 mg/dL B-Type Natriuretic Peptide 82.58 0-100 pg/mL Vitamin B12 Level 505 211-911 pg/mL Vitamin D 25-Hydroxy 52.9 30.0-100 ng/mL Thyroid Stimulating Hormone (TSH) 0.27 L 0.55-4.78 uIU/mL Plasma/Serum Blood Alcohol < 3.0 <10 mg/dL Test 02/07/25 14:55 Range/Units POC Glucose 141 H 70-106 mg/dl Assessment General weakness Fall/gait disturbance ? Cognitive dysfunction Bipolar disorder Questionable tremors and posturing in the hands Plan/Recommendation Monitoring Supportive treatment Telemetry MR brain scan Aricept 10 mg daily for now Continuing her psychiatric medications Up to chair Physical therapy More recommendation per clinical course This medical document was created using an electronic medical record system with [employer] dictation system. Although this document has been carefully reviewed, there may still be some phonetic and typographical errors. These areas are purely typographical due to imperfections of the software programs, an d do not reflect any compromise in the patient's medical care. Plan discussed with: Patient, Other EDVIN VAN MD Feb 08, 2025 23:30
[2025-02-09] VITALS (17 sets, daily range): BP systolic 103–155; BP diastolic 42–56; PULSE 53–76; RESP 16–20; TEMP 98.2–99.2; O2SAT 90–100
[2025-02-09] MEDS ORDERED: LORazepam 2MG/ML-1ML VIAL IV PRN
[2025-02-09] MEDS: SODIUM CHLORIDE 0.9% 500 ML IV ONE ×2 (06:30→12:20)
[2025-02-09] MEDS: QUEtiapine FUMARATE 100 MG TAB PO SCH (07:04)
[2025-02-09 07:26] LABS: Calcium 9.3 mg/dL (8.7-10.4); Sodium 145 mmol/L (136-145)
[2025-02-09 07:27] LABS: Anion Gap 9 (5-15); Carbon Dioxide 28 mmol/L (20-31)
[2025-02-09 07:32] LABS: BUN/Creatinine Ratio 15.9 (10.0-20.0); Blood Urea Nitrogen 14 mg/dL (9-23)
[2025-02-09 07:33] LABS: Chloride 108 mmol/L (98-107); Glucose 108 mg/dL (74-106); Potassium 3.5 mmol/L (3.5-5.1)
[2025-02-09] MEDS: DONEPEZIL HYDROCHLORIDE 5 MG TAB PO SCH (09:16)
[2025-02-09] MEDS: PANTOPRAZOLE 40 MG/10 ML VIAL INJ IV SCH (09:16)
--- NOTE | 2025-02-09 11:47 | DVH ---
EXAMINATION: MRI BRAIN HEAD WO CONTRAST INDICATION: weakness, dementia COMPARISON: CT head 01/2025 TECHNIQUE: Multiplanar, multisequence magnetic resonance imaging of the brain was performed without t he use of intravenous contrast. FINDINGS: There is no restricted diffusion. There are mild chronic small-vessel ischemic changes in the suprate ntorial white matter. There is no evidence of hemorrhage, mass, mass effect or midline shift. There i s no hydrocephalus or extra-axial fluid collection. The visualized intracranial vasculature demonstra nadia appropriate flow-voids. The sagittal midline structures appear unremarkable. The craniocervical j unction is within normal limits. The calvarium demonstrates normal marrow signal. The paranasal sinus es and mastoid air cells are clear. IMPRESSION: 1. There is no acute intracranial process. 2. Mild chronic small-vessel supratentorial white matter ischemic changes. HS:Y
--- NOTE | 2025-02-09 16:45 | DVHPNRES ---
Progress Note Date Seen: Feb 09, 2025 Resident Creating Document: JESSICA MAR RESIDENT Medical Necessity Reason Pt with a Central, PICC or Fol: No The following are medically ne: Miller Catheter Subjective Review of Systems Louisa Caldwell is a 74-year-old female COPD, hypertension, heart failure, paroxysmal AFib (chads Vasc 4 /Has bled 2), major depressive disorder, bipolar disorder presented to the ED with a chief complaint of cognitive and memory deficit and generalized weakness. As per patient and patient went over to her son's house while she was feeling different. Patient was sliding down from the chair, could not keep balance when walking, having dysarthria and feeling tired. Patient reported that this has been going on for almost 3 months but yesterday was really worse. Patient's has been reports that since the last 3-4 months patient has been having declining cognition and worsening memory function but it has gotten worse in the last 2 weeks with the associated difficulty walking with the patient taking short shuffling steps, associated with the flu-like symptoms of body aches and generalized weakness. Patient reports that she forgets recent things and her long-term memory is intact. CXR-Blunting of the costophrenic angles bilaterally, suspected small bilateral pleural effusions with overlying atelectasis. 2. Prominence of the pulmonary vasculature suggesting a degree of pulmonary vascular congestion. Correlate with clinical findings. CT head-No evidence of acute intracranial abnormality. Initial lab workup revealed creatinine 1.2, UDS negative, serum alcohol less than 3.0. Urinalysis negative for UTI. Echo 2D revealed LVEF 60- 65%, mild LVH. Mild diastolic dysfunction. MRI of the brain-revealed Mild chronic small-vessel supratentorial white matter ischemic changes. Past medical history of COPD, hypertension, heart failure, paroxysmal AFib (chads Vasc 4 /Has bled 2), major depressive disorder, bipolar disorder Past surgical history: None Social history: Patient is an ex-smoker with 45 pack year smoking history, currently vapes nicotine, denies alcohol or any other drug use Home medications: Patient does not remember the medications and following medications were seen on the med reconciliation, simvastatin, Trelegy inhaler, lamotrigine, trazodone 150 mg, sertraline 150 mg, Farxiga 10 mg, quetiapine 50 q.d., 400 Q HS, donepezil 10 mg, metoprolol succinate 25 mg once daily, metformin 1000 mg b.i.d., ezetimibe 10 mg, topiramate 50 mg Allergy- NKDA Personal History/ Social History- ex-smoker, denies alcohol doing drugs Patient was seen today at the bedside. Cardiovascular- deny acute chest pain or shortness of breath or cough or palpitation Respiratory denies cough or short of breath or wheezing Gastrointestinal- denies any rectal bleeding, nausea or vomiting Musculoskeletal-denies acute joint swelling or tenderness or redness Psychiatry- denies depression or SI or HI Skin- denies acute rash or purpura Patient was seen today for clinical evaluation. Labs and chart reviewed. Patient reported feeling better today. Patient was seen by Neurology. Recommendation reviewed and appreciated. Ordered tele psychiatric consult for med reconciliation, polypharmacy, causing weakness, vs akasthesia. Echo 2D revealed LVEF 60-65%, mild LVH. Mild diastolic dysfunction. MRI of the brain- revealed Mild chronic small-vessel supratentorial white matter ischemic changes. Objective vital signs Vital Sign Date Time Temp Pulse Resp B/P (MAP) Pulse Ox O2 Delivery O2 Flow Rate FiO2 02/09/25 13:00 99.0 68 20 155/56 (89) 98 99.0 02/09/25 11:34 Nasal Cannula* 3 32 Total Intake and Output 02/08/25 02/08/25 02/09/25 15:00 23:00 07:00 Intake Total 725 ml 200 ml Output Total 800 ml Balance -75 ml 200 ml medications Current Medications Medications Dose Ordered Sig/Jose Route Start Time Stop Time Status Last Admin Dose Admin Albuterol 2.5 mg Q6HR NEB 02/08/25 00:00 02/09/25 11:34 2.5 MG Ipratropium [place] 0.5 mg Q6HR NEB 02/08/25 00:00 02/09/25 11:34 0.5 MG Atorvastatin Calcium 40 mg HS PO 02/08/25 22:00 02/08/25 21:14 40 MG EZETIMIBE 10 mg DAILY PO 02/08/25 10:00 Hold 02/08/25 09:18 10 MG Clotrimazole 1 applic Q12HR TOP 02/08/25 10:00 02/09/25 09:33 1 APPLIC Potassium Chloride 100 ml @ 50 mls/hr Q2H IV 02/08/25 03:15 02/08/25 07:14 UNV Benztropine Mesylate 2 mg BID PO 02/08/25 22:00 02/09/25 09:15 2 MG Donepezil HCl 10 mg DAILY PO 02/09/25 10:00 02/09/25 09:16 10 MG Lamotrigine 25 mg BID PO 02/08/25 22:00 02/09/25 09:15 25 MG Quetiapine Fumarate 400 mg HS PO 02/08/25 22:00 02/08/25 21:00 400 MG Sertraline HCl 100 mg HS PO 02/09/25 22:00 Topiramate 50 mg HS PO 02/09/25 22:00 Gabapentin 600 mg TID PO 02/08/25 22:00 02/09/25 14:10 600 MG Rivaroxaban 20 mg QPM PO 02/08/25 18:00 02/08/25 18:41 20 MG Pantoprazole Sodium 40 mg DAILY IV 02/09/25 10:00 02/09/25 09:16 40 MG Quetiapine Fumarate 100 mg QAM PO 02/09/25 07:00 02/09/25 07:04 100 MG Lorazepam 1 mg ONCE PRN IV 02/09/25 00:00 Examination General examination- awake, alert, oriented HEENT- PEERLA, no acute nasal discharge Cardiovascular- S1-S2 audible, rate and rhythm regular, no murmur Respiratory- CTAB, no wheeze or rhonchi Gastrointestinal-nontender, bowel sound+. Nondistended Musculoskeletal-no acute joint swelling or tenderness or redness Lower extremity- no leg edema Neurological- cranial nerves intact, no acute dysarthria or dysphagia Psychiatry- denies depression or SI or HI Skin- no acute rash or purpura laboratory and microbiology Laboratory Tests 02/09/25 06:21 02/08/25 09:48 Test 02/09/25 06:21 Range/Units Serum Glucose 108 H 74-106 mg/dL Problem List/Assessment/Plan Problem List/Assessment/Plan Assessment and plan Suspected TIA, rule out Parkinson disease Shuffling gait, slurring speech, generalized weakness likely due to TIA/Parkinson's disease Acute hypoxic respiratory failure likely due to acute exacerbation of COPD PANCHITO likely due to VMN Prediabetes, HGB A1c 6.1 COPD, hypertension, heart failure, paroxysmal AFib (chads Vasc 4 /Has bled 2), major depressive disorder, bipolar disorder 12/11/2024- Echo 2D revealed LVEF 60-65%, mild LVH. Mild diastolic dysfunction. 12/12/24- MRI of the brain-revealed Mild chronic small-vessel supratentorial white matter ischemic changes. Plan Continue nebulization as prescribed Titrate NC O2 as required Continue atorvastatin 40 mg p.o. q.h.s. Continue gabapentin 600 mg p.o. t.i.d. Lamotrigine 25 mg p.o. b.i.d. Xarelto 20 mg p.o. q.p.m. Sertraline 200 mg p.o. HS Seroquel 4 mg p.o. HS Topiramate 50 mg p.o. HS Status post neurology consult Ordered tele psych consult for polypharmacy,polypharmacy causing weakness, vs akasthesia. Goals of care, Code status ; discussed with >15 minutes PUD prophylaxis: Pantoprazole DVT prophylaxis: Xarelto Plan discussed with Dr. Cruz , nursing staff, Total time spent on patient evaluation, chart review, assessment and plan, discussion discussion >35 minutes Plan discussed with: Patient, Spouse (RN), Other My Orders My Orders Orders - JESSICA MAR Procedure Category Date Status Time Quetiapine Fumarate PHA 02/09/25 In Process Tablet (Seroquel Tab 07:00 Date of Service: Feb 09, 2025 Billing Provider: SAMUEL HANCOCK MD Common Visit Codes: [id number] INP/OBS CARE(HIGH) JESSICA MAR Feb 09, 2025 16:45 SAMUEL HANCOCK MD Feb 10, 2025 00:37
[2025-02-09] MEDS: SERTRALINE HCL 50 MG TAB PO SCH (22:06)
[2025-02-09] MEDS: TOPIRAMATE 25 MG TAB PO SCH (22:07)
--- NOTE | 2025-02-09 23:04 | DVHPN2 ---
Progress Note - Dictate Date Seen: Feb 09, 2025 Medical Necessity Reason Pt with a Central, PICC or Fol: No The following are medically ne: Miller Catheter Subjective Ms. Caldwell is a 74 years old right-handed female with a history of hypertension, diabetes, dyslipidemia, bipolar disorder, COPD, AFib, skin cancer, she was brought to the [facility] on 02/07/2025 with a chief company of general weakness. I have seen and examined the patient, I have talked to her nurse, her roommate also she was conversation She was alert, oriented x3, she was able to hold a good conversation She reports a progressive memory problem, however I do not see convincing memory difficulty in our conversation, hers roommate claimed that the has been sharing the room for two days, the talk to each other every day and she does not see evidence of memory problem. She reports no difficulty with driving, paying her bills Only for six weeks, she has progressive tremor in both hands, and I see passive tremors in both hands symmetrically again today. The patient was released the tremors affect her motor function, such as a writing, and eating She has bipolar but is not on lithium, Depakote She does not drink alcohol She was adopted, not clear if she was family history of dementia, none of her 4 children has no tremors UDS, 02/07/2025: Negative Plasma alcohol, 02/07/2025: Normal Urinalysis, 02/07/2025: Unremarkable CBC, 02/08/2025: Unremarkable CMP, 02/08/2025: Unremarkable Vitamin B12, 02/07/25: 505 Folic acid, 02/08/2025: 13.21 FT4, 02/08/25: 0.95 Echocardiogram, 02/08/2025: Tissue Doppler imaging reveals normal left ventricular function. Left ventricle systolic function is normal. The Ejection Fraction is 60-65%. There is mild LVH Mild diastolic dysfunction Normal RV function mildly dilated mildly dilated moderate pulm htn rvsp 45-[address] head, 02/07/2025: No evidence of acute intracranial abnormality MRI head, 02/09/2025: 1. There is no acute intracranial process. 2. Mild chronic small-vessel supratentorial white matter ischemic changes. vital signs Vital Sign Date Time Temp Pulse Resp B/P (MAP) Pulse Ox O2 Delivery O2 Flow Rate FiO2 4/22/25 21:00 99.2 66 18 118/50 (72) 96 99.2 02/09/25 20:00 Room Air* 0 21 Total Intake and Output 02/08/25 02/08/25 02/09/25 15:00 23:00 07:00 Intake Total 725 ml 200 ml Output Total 800 ml Balance -75 ml 200 ml medications Current Medications Medications Dose Ordered Sig/Jose Route Start Time Stop Time Status Last Admin Dose Admin Albuterol 2.5 mg Q6HR NEB 02/08/25 00:00 02/09/25 21:59 2.5 MG Ipratropium [place] 0.5 mg Q6HR NEB 02/08/25 00:00 02/09/25 21:59 0.5 MG Atorvastatin Calcium 40 mg HS PO 02/08/25 22:00 02/09/25 22:07 40 MG EZETIMIBE 10 mg DAILY PO 02/08/25 10:00 Hold 02/08/25 09:18 10 MG Clotrimazole 1 applic Q12HR TOP 02/08/25 10:00 02/09/25 22:08 1 APPLIC Potassium Chloride 100 ml @ 50 mls/hr Q2H IV 02/08/25 03:15 02/08/25 07:14 UNV Benztropine Mesylate 2 mg BID PO 02/08/25 22:00 02/09/25 22:06 2 MG Donepezil HCl 10 mg DAILY PO 02/09/25 10:00 02/09/25 09:16 10 MG Lamotrigine 25 mg BID PO 02/08/25 22:00 02/09/25 22:06 25 MG Quetiapine Fumarate 400 mg HS PO 02/08/25 22:00 02/09/25 22:07 400 MG Sertraline HCl 100 mg HS PO 02/09/25 22:00 02/09/25 22:06 100 MG Topiramate 50 mg HS PO 02/09/25 22:00 02/09/25 22:07 50 MG Gabapentin 600 mg TID PO 02/08/25 22:00 02/09/25 22:07 600 MG Rivaroxaban 20 mg QPM PO 02/08/25 18:00 02/09/25 18:33 20 MG Pantoprazole Sodium 40 mg DAILY IV 02/09/25 10:00 02/09/25 09:16 40 MG Quetiapine Fumarate 100 mg QAM PO 02/09/25 07:00 02/09/25 07:04 100 MG Lorazepam 1 mg ONCE PRN IV 02/09/25 00:00 objective General: the patient is well developed and nourished. No acute distress. MENTAL STATUS: Subjective SPEECH, LANGUAGE, HIGHER CORTICAL FUNCTION: no aphasia or dysathria. CRANIAL NERVES: Pupils are equal, round and reactive. EOMs full and conjugate. No nystagmus. Facial sensation intact in all three divisions bilaterally. Mandibular strength intact. Facial muscles symmetrical and strength intact. SENSATION: Sensation to touch and pinprick is normal. MOTOR: Normal tone in the upper and lower extremity. Normal muscle bulk. No fasciculations. Mild tremors in the arms and posturing. Muscle strength of the major groups in the extremities is 5/5. REFLEXES: Deep tendon reflexes normal and symmetrical. No pathological reflexes. CEREBELLAR/COORDINATION: Finger to nose isnormal bilaterally. GAIT/STATION: deferred. laboratory and microbiology Laboratory Tests 02/09/25 06:21 02/08/25 09:48 Test 02/09/25 06:21 Range/Units Serum Glucose 108 H 74-106 mg/dL Problem List General weakness Fall/gait disturbance Cognitive dysfunction, not convincing per my observation, Bipolar disorder Tremors, likely essential tremor Assessment/Plan Monitoring Supportive treatment Telemetry Aricept 10 mg daily for now Continuing her psychiatric medications I do not recommend essential tremor treatment at this time Up to chair Physical therapy More recommendation per clinical course Complicated follow-up This medical document was created using an electronic medical record system with [employer] dictation system. Although this document has been carefully reviewed, there may still be some phonetic and typographical errors. These areas are purely typographical due to imperfections of the software programs, and do not reflect any compromise in the patient's medical care. Prognosis poor Plan discussed with: Patient, Other Total Time (mins): 45 EDVIN VAN MD Feb 09, 2025 23:04
[2025-02-10] VITALS (14 sets, daily range): BP systolic 104–164; BP diastolic 41–54; PULSE 59–83; RESP 18–22; TEMP 98–99.4; O2SAT 91–99
[2025-02-10 07:31] LABS: Anion Gap 8 (5-15); Carbon Dioxide 27 mmol/L (20-31); Potassium 3.7 mmol/L (3.5-5.1); Sodium 145 mmol/L (136-145)
[2025-02-10 07:32] LABS: Calcium 9.5 mg/dL (8.7-10.4)
[2025-02-10 07:37] LABS: BUN/Creatinine Ratio 16.5 (10.0-20.0); Blood Urea Nitrogen 14 mg/dL (9-23)
[2025-02-10 07:41] LABS: Chloride 110 mmol/L (98-107); Glucose 117 mg/dL (74-106)
--- NOTE | 2025-02-10 17:12 | DVHDSRES ---
Discharge Summary Date of Admission Resident Creating Document: JESSICA PARSON RESIDENT Feb 07, 2025 at 21:41 Date of Discharge: Feb 10, 2025 Admitting Diagnosis Generalized weakness, rule out TIA/CVA Labs/Diagnostic Data: Laboratory Results Test 02/10/25 15:08 02/10/25 05:52 02/08/25 09:48 02/07/25 18:40 Blood Gas Specimen Type Arterial Blood Gas Sample Site Left radial Blood Gas Patient Temperature 37.0 Arterial Blood Date Drawn [id number] Arterial Blood pH 7.386 (7.350-7.450) Arterial Blood Partial Pressure CO2 40.9 mmHg (32.0-45.0) Arterial Blood Partial Pressure O2 45.3 mmHg (83.0-108.0) Arterial Blood HCO3 24.0 mmol/L (21.0-28.0) Arterial Blood Oxygen Saturation 81.4 % (94.0-98.0) Arterial Blood Base Excess -1.0 mmol/L (-2.0-3.0) Arterial Blood Oxyhemoglobin 80.2 % (94.0-98.0) Arterial Blood Carboxyhemoglobin 1.0 % (0.5-1.5) Arterial Blood Methemoglobin 0.5 % (0.0-1.5) Nehemias Test Yes Blood Gas Total Hemoglobin 13.10 g/dL (12.0-16.0) Blood Gas Modality Room air Blood Gas Spontaneous Rate 18 FiO2 % 21.0 Blood Gas Critical Value Read Back Yes Blood Gas Notified Whom Md. jeff parson Blood Gas Notified Time [id number] Blood Gas Notified By Rt jolene white Sodium Level 145 mmol/L (136-145) Potassium Level 3.7 mmol/L (3.5-5.1) Chloride Level 110 mmol/L (98-107) Carbon Dioxide Level 27 mmol/L (20-31) Anion Gap 8 (5-15) Blood Urea Nitrogen 14 mg/dL (9-23) Creatinine 0.85 mg/dL (0.550-1.02) Glomerular Filtration Rate Calc 72 mL/min (>90) BUN/Creatinine Ratio 16.5 (10.0-20.0) Serum Glucose 117 mg/dL (74-106) Calcium Level 9.5 mg/dL (8.7-10.4) White Blood Count 8.0 10^3/uL (4.4-10.8) Red Blood Count 4.18 10^6/uL (4.0-5.20) Hemoglobin 12.7 g/dL (12.2-16.2) Hematocrit 38.9 % (36.0-46.0) Mean Corpuscular Volume 93.1 fL (80.0-100.0) Mean Corpuscular Hemoglobin 30.5 pg (28.0-32.0) Mean Corpuscular Hemoglobin Concent 32.8 g/dL (32.0-36.0) Red Cell Distribution Width 16.2 % (11.8-14.3) Platelet Count 219 10^3/uL (140-450) Mean Platelet Volume 7.8 fL (6.9-10.8) Neutrophils (%) (Auto) 79.9 % (37.0-80.0) Lymphocytes (%) (Auto) 13.4 % (10.0-50.0) Monocytes (%) (Auto) 6.4 % (0.0-12.0) Eosinophils (%) (Auto) 0.1 % (0.0-7.0) Basophils (%) (Auto) 0.2 % (0.0-2.0) Neutrophils # (Auto) 6.4 10 ^3/uL (1.6-8.6) Lymphocytes # (Auto) 1.1 10 ^3/uL (0.4-5.4) Monocytes # (Auto) 0.5 10 ^3/uL (0-1.3) Eosinophils # (Auto) 0 10 ^3/uL (0-0.8) Basophils # (Auto) 0 10 ^3/uL (0-0.2) Nucleated Red Blood Cells 0.1 % Prothrombin Time 10.9 sec (9.3-11.8) Prothrombin Time INR 1.03 (0.9-1.15) Activated Partial Thromboplast Time 29.4 SEC (24.5-34.5) Total Bilirubin 0.3 mg/dL (0.2-1.0) Aspartate Amino Transferase (AST) 19 U/L (13-40) Alanine Aminotransferase (ALT) 11 U/L (7-40) Alkaline Phosphatase 80 U/L (46-116) Total Protein 6.7 g/dL (5.7-8.2) Albumin 4.6 g/dL (3.2-4.8) Folic Acid 13.21 ng/mL (>5.38) Free Thyroxine (T4) Calculated 0.94 ng/dL (0.89-1.76) Total Triiodothyronine (TT3) 0.50 ng/mL (0.60-1.81) Urine Color Light-yellow (Yellow) Urine Clarity Clear (Clear) Urine pH 6.0 (5.0-9.0) Urine Specific Rock 1.012 (1.001-1.035) Urine Protein Negative (Negative) Urine Ketones Negative (Negative) Urine Blood Negative /uL (Negative) Urine Nitrite Negative (Negative) Urine Bilirubin Negative (Negative) Urine Urobilinogen Normal mg/dL (Negative) Urine Leukocyte Esterase Negative /uL (Negative) Urine RBC <1 /hpf (0 - 4) Urine Microscopic WBC 1 /HPF (0-5) Urine Squamous Epithelial Cells None seen /hpf (<5) Urine Bacteria None seen /hpf (None Seen) Urine Glucose Normal mg/dL (Normal) Urine Opiates Screen Neg (NEGATIVE) Urine Fentanyl Screen Neg (NEGATIVE) Urine Barbiturates Screen Neg (NEGATIVE) Urine Phencyclidine Screen Neg (NEGATIVE) Urine Amphetamines Screen Neg (NEGATIVE) Urine Benzodiazepines Screen Neg (NEGATIVE) Urine Cocaine Screen Neg (NEGATIVE) Urine Cannabinoids Screen Neg (NEGATIVE) Influenza Type A Antigen Negative (Negative) Influenza Type B Antigen Negative (Negative) SARS-CoV-2 Antigen (Rapid) Negative (NEGATIVE) Test 02/07/25 15:57 02/07/25 15:03 02/07/25 14:55 Troponin I High Sensitivity 8 ng/L (</=34) Hemoglobin A1c 6.1 % A1C (<5.7) Lactic Acid Level 1.9 mmol/L (0.4-2.0) Phosphorus Level 3.4 mg/dL (2.4-5.1) Magnesium Level 2.0 mg/dL (1.6-2.6) B-Type Natriuretic Peptide 82.58 pg/mL (0-100) Vitamin B12 Level 505 pg/mL (211-911) Vitamin D 25-Hydroxy 52.9 ng/mL (30.0-100) Thyroid Stimulating Hormone (TSH) 0.27 uIU/mL (0.55-4.78) Plasma/Serum Blood Alcohol < 3.0 mg/dL (<10) POC Glucose 141 mg/dl (70-106) Other Laboratory Tests 02/10/25 05:52 02/08/25 09:48 Brief Hx & Hospital Course: Stevie Vee is a 74-year-old female COPD, hypertension, heart failure, paroxysmal AFib (chads Vasc 4 /Has bled 2), major depressive disorder, bipolar disorder presented to the ED with a chief complaint of cognitive and memory deficit and generalized weakness. As per patient and patient went over to her son's house while she was feeling different. Patient was sliding down from the chair, could not keep balance when walking, having dysarthria and feeling tired. Patient reported that this has been going on for almost 3 months but yesterday was really worse. Patient's has been reports that since the last 3-4 months patient has been having declining cognition and worsening memory function but it has gotten worse in the last 2 weeks with the associated difficulty walking with the patient taking short shuffling steps, associated with the flu-like symptoms of body aches and generalized weakness. Patient reports that she forgets recent things and her long-term memory is intact. CXR-Blunting of the costophrenic angles bilaterally, suspected small bilateral pleural effusions with overlying atelectasis. 2. Prominence of the pulmonary vasculature suggesting a degree of pulmonary vascular congestion. Correlate with clinical findings. CT head-No evidence of acute intracranial abnormality. Initial lab workup revealed creatinine 1.2, UDS negative, serum alcohol less than 3.0. Urinalysis negative for UTI. Echo 2D revealed LVEF 60- 65%, mild LVH. Mild diastolic dysfunction. MRI of the brain-revealed Mild chronic small-vessel supratentorial white matter ischemic changes. Hospital course-Stevie Vee is a 74-year-old female COPD, hypertension, heart failure, paroxysmal AFib (chads Vasc 4 /Has bled 2), major depressive disorder, bipolar disorder presented to the ED with a chief complaint of cognitive and memory deficit and generalized weakness. As per patient and patient went over to her son's house while she was feeling different. Patient was sliding down from the chair, could not keep balance when walking, having dysarthria and feeling tired. Patient reported that this has been going on for almost 3 months but yesterday was really worse. Patient's has been reports that since the last 3-4 months patient has been having declining cognition and worsening memory function but it has gotten worse in the last 2 weeks with the associated difficulty walking with the patient taking short shuffling steps, associated with the flu-like symptoms of body aches and generalized weakness. Patient reports that she forgets recent things and her long-term memory is intact. CXR-Blunting of the costophrenic angles bilaterally, suspected small bilateral pleural effusions with overlying atelectasis. 2. Prominence of the pulmonary vasculature suggesting a degree of pulmonary vascular congestion. Correlate with clinical findings. CT head-No evidence of acute intracranial abnormality. Initial lab workup revealed creatinine 1.2, UDS negative, serum alcohol less than 3.0. Urinalysis negative for UTI. Echo 2D revealed LVEF 60-65%, mild LVH. Mild diastolic dysfunction. MRI of the brain-revealed Mild chronic small-vessel supratentorial white matter ischemic changes. Patient's symptom improved with the conservative management. Patient was seen by Neurology, recommendation reviewed and appreciated, no new order received from the neurologist. Patient also had a tele psych consult for med reconsideration for Psychiatry, polypharmacy, akathisia. Patient qualify for home oxygen as per ABG report. Patient is being sent home with continuous home oxygen 3 L/min. Patient's meds were adjusted as per Psychiatry recommendation. Patient's meds were sent to the pharmacy electronically. Patient was hemodynamically stable on discharge Assessment Possible akathisia/polypharmacy side effect Acute hypoxic respiratory failure likely due to acute exacerbation of COPD Ruled out TIA, ruled out Parkinson disease generalized weakness likely due to polypharmacy/akinesia PANCHITO likely due to VMN Prediabetes, COPD, hypertension, heart failure, paroxysmal AFib major depressive disorder, bipolar disorder Discharge plan Please follow up with the primary care physician in 1 week Please follow up with the psychiatrist in 1-2 weeks Please follow up with the neurologist in 2-3 weeks Operations or Procedures [address] [address] Ph: [phone] DIAGNOSTIC IMAGING Diagnostic Imaging Report : [id number] Signed PATIENT: MARY VEET: [id number] UNIT: [id number] : 1950 LOC: TELE-CENTR ROOM / BED: [facility] / A AGE / SEX: 74 / F ADM STATUS: ADM IN SERVICE 31 ORDERING PHYSICIAN: TESSY DANG RESIDENT PROCEDURE(s): ECIDC - ECHO 2D MODE CARDIAC DOP REASON: SOB ORDER NUMBER(s): [id number], ACCESSION NUMBER(s): [id number] APPROVED REPORT EXAM: Two-dimensional and M-mode echocardiogram with Doppler and color Doppler. Blood Pressure: 112/53 mmHg INDICATION Dyspnea SOB RISK FACTORS Height: 5'2", Weight: 147 DIMENSIONS LVDd 5.1 (3.8-5.7cm) LA (2D) 4.1 (1.9-4.0cm) Aortic Root 3.5 (2.0- 3.7cm) LVDs 3.3 (2.5-4.0cm) LA (MM) (1.9-4.0cm) Aortic Cusp Exc 1.6 (1.5- 2.0cm) EF (%) 65.0 (55-70%) Rt. Atrium 3.9 (1.9-4.0cm) Asc. Aorta cm IVSd 1.0 (0.7-1.1cm) RV (D) (1.8-2.4cm) PWd 1.0 (0.7-1.1cm) Mitral Valve Mitral Mitral Stenosis E wave 1.32m/s MV Mean GR. mmHg A wave 0.97m/s MV Peak GR. mmHg E/A ratio 1.4 2D MVA cm2 DECEL Time 218ms PRESS 1/2 Time ms Aortic Valve Aortic Valve Aortic Stenosis V1 1.12m/s AO Mean GR. 6mmHg V2 1.76m/s AO Peak GR. 12mmHg LVOT Diameter 1.8 (1.8-2.4cm) Doppler RIKKI 1.62cm2 Pulmonic Valve V2 1.14m/s Tricuspid Valve TR Velocity 3.19m/s RVSP 44mmHg LEFT VENTRICLE Tissue Doppler imaging reveals normal left ventricular function. Left ventricle systolic function is normal. The Ejection Fraction is 60-65%. RIGHT VENTRICLE Normal ATRIA mildly dilated mildly dilated TRICUSPID VALVE moderate pulm htn rvsp 45-50 mmgh Other Information Technically limited study due to body habitus. Conclusion Tissue Doppler imaging reveals normal left ventricular function. Left ventricle systolic function is normal. The Ejection Fraction is 60-65%. There is mild LVH Mild diastolic dysfunction Normal RV function mildly dilated mildly dilated moderate pulm htn rvsp 45-50 mmgh SIGNED BY: ANTHONY HANDY MD SIGNED DATE/TIME: 02/08/25 5420 CC: [place] [id number] Ph: [phone] DIAGNOSTIC IMAGING Diagnostic Imaging Report : [id number] Signed PATIENT: STEVIE VEEACCT: [id number] UNIT: [id number] : 1950 LOC: TELE-[facility] ROOM / [facility] / A AGE / SEX: 74 / F ADM STATUS: ADM IN SERVICE [id number] ORDERING PHYSICIAN: EDVIN VAN MD PROCEDURE(s): MBHL - BRAIN HEAD WO CONTRAST REASON: weakness, ? dementia ORDER NUMBER(s): [id number], ACCESSION NUMBER(s): [id number] EXAMINATION: MRI BRAIN HEAD WO CONTRAST INDICATION: weakness, dementia COMPARISON: CT head 01/2025 TECHNIQUE: Multiplanar, multisequence magnetic resonance imaging of the brain was performed without the use of intravenous contrast. FINDINGS: There is no restricted diffusion. There are mild chronic small-vessel ischemic changes in the supratentorial white matter. There is no evidence of hemorrhage, mass, mass effect or midline shift. There is no hydrocephalus or extra-axial fluid collection. The visualized intracranial vasculature demonstrates appropriate flow-voids. The sagittal midline structures appear unremarkable. The craniocervical junction is within normal limits. The calvarium demonstrates normal marrow signal. The paranasal sinuses and mastoid air cells are clear. IMPRESSION: 1. There is no acute intracranial process. 2. Mild chronic small-vessel supratentorial white matter ischemic changes. HS:Y ATED BY: ANI MISHRA MD DICTATED DATE/TIME: 02/09/25 1144 SIGNED BY: ANI MISHRA MD SIGNED DATE/TIME: 02/09/25 1144 CC: [place] [id number] Ph: [phone] DIAGNOSTIC IMAGING Diagnostic Imaging Report : [id number] Signed PATIENT: ELIZABETH VEE: [id number] UNIT: [id number] : 1950 LOC: ER ROOM / BED: / AGE / SEX: 74 / F ADM STATUS: REG ER SERVICE 1451 ORDERING PHYSICIAN: CHIN PARKER MD PROCEDURE(s): HWOCT - HEAD WITHOUT CONTRAST REASON: weakness ORDER NUMBER(s): [id number], ACCESSION NUMBER(s): [id number] Procedure: CT HEAD WITHOUT CONTRAST Study Date and Requested Time: 02/07/2025 05:02 PM History: weakness Comparison: HEAD WITHOUT CONTRAST on DOS: 09/13/20 Dose: CTDI: 57.8 mGy DLP: 1139.09 mGycm Technique: Multiplanar images obtained through the brain without intravenous contrast. Findings: Normal brain volume and formation. Mild chronic small vessel ischemic changes. Bilateral basal ganglia physiologic calcification. No hemorrhages, masses, mass effect, midline shift, herniation or cytotoxic edema following a large vascular territory. No intra-axial or extra-axial fluid collections. No evidence of hydrocephalus. The basal cisterns are patent. The pituitary gland, sella and parasellar regions are unremarkable. The cerebellar tonsils are in normal position. The cerebellum is unremarkable. The orbits and globes are unremarkable. The paranasal sinuses and mastoids are clear. There are no worrisome calvarial lesions. Impression: No evidence of acute intracranial abnormality. ATED BY: EDYTA HUNTER DO DICTATED DATE/TIME: 02/07/25 173 SIGNED BY: EDYTA HUNTER DO SIGNED DATE/TIME: 02/07/25 173 CC: [place] [id number] Ph: [phone] DIAGNOSTIC IMAGING Diagnostic Imaging Report : [id number] Signed PATIENT: ELIZABETH VEE: [id number] UNIT: [id number] : 1950 LOC: ER ROOM / BED: / AGE / SEX: 74 / F ADM STATUS: REG ER SERVICE 1451 ORDERING PHYSICIAN: CHIN PARKER MD PROCEDURE(s): CXRP - CHEST PORTABLE REASON: weakness ORDER NUMBER(s): [id number], ACCESSION NUMBER(s): [id number] CLINICAL INFORMATION: 74 years old, Female; weakness. TECHNIQUE: Single AP portable chest radiograph was obtained. COMPARISON: CHEST PORTABLE on DOS: 09/13/20 FINDINGS: Lungs: Minimal blunting of the costophrenic angles bilaterally, possible small bilateral pleural effusions with overlying atelectasis. Cardiac: Cardiac silhouette is at the upper limits of normal in size, likely accentuated due to portable AP technique. Pulmonary vasculature: Mild prominence of the pulmonary vasculature. Mediastinum/dominique: Moderate atherosclerotic calcification of the aortic arch. Bones: No acute osseous abnormality identified. Other: No other significant findings. IMPRESSION: 1. Blunting of the costophrenic angles bilaterally, suspected small bilateral pleural effusions with overlying atelectasis. 2. Prominence of the pulmonary vasculature suggesting a degree of pulmonary vascular congestion. Correlate with clinical findings. ATED BY: JOSE KILLIAN DO DICTATED DATE/TIME: 02/07/251613 SIGNED BY: JOSE KILLIAN DO SIGNED DATE/TIME: 02/07/251613 CC: Condition at Discharge: Stable Final Diagnosis/Problems List Possible akathisia/polypharmacy side effect Acute hypoxic respiratory failure likely due to acute exacerbation of COPD Ruled out TIA, ruled out Parkinson disease generalized weakness likely due to polypharmacy/akinesia PANCHITO likely due to VMN Prediabetes, COPD, hypertension, heart failure, paroxysmal AFib major depressive disorder, bipolar disorder Discharge Disposition: Home Discharge Instruct/Medications Diet: Consistent carbohydrate, Cardiac 2g Na,low cholest Activity: No Restrictions, As Tolerated Follow Up/Referral: Please follow up with the primary care physician in 1 week Please follow up with your psychiatrist in 1-2 weeks Please follow up with the neurologist in 1-2 weeks Medications: As per EMS Discharge Statement: "Patient was advised to return to the ER or call 911 if any headaches, dizziness, shortness of breath, chest pain, abdominal pain, bleeding, fevers, or worsening of medical condition. Patient was counseled about treatment plan, medications, possible side effects, patientverbalized understanding. All questions were answered to the best of my ability. This discharge took greater then 30 minutes in planning, reviewing documentation, counseling the patient, and discussing with other team members." ASSESSMENT ASSESSMENT Assessment JESSICA PARSON RESIDENT Feb 10, 2025 17:12
--- NOTE | 2025-02-10 19:20 | DVHPNRES ---
Progress Note Date Seen: Feb 10, 2025 Resident Creating Document: JESSICA MAR Medical Necessity Reason Pt with a Central, PICC or Fol: No The following are medically ne: Miller Catheter Subjective Review of Systems Hospital course-Louisa Caldwell is a 74-year-old female COPD, hypertension, heart failure, paroxysmal AFib (chads Vasc 4 /Has bled 2), major depressive disorder, bipolar disorder presented to the ED with a chief complaint of cognitive and memory deficit and generalized weakness. As per patient and patient went over to her son's house while she was feeling different. Patient was sliding down from the chair, could not keep balance when walking, having dysarthria and feeling tired. Patient reported that this has been going on for almost 3 months but yesterday was really worse. Patient's has been reports that since the last 3-4 months patient has been having declining cognition and worsening memory function but it has gotten worse in the last 2 weeks with the associated difficulty walking with the patient taking short shuffling steps, associated with the flu-like symptoms of body aches and generalized weakness. Patient reports that she forgets recent things and her long-term memory is intact. CXR-Blunting of the costophrenic angles bilaterally, suspected small bilateral pleural effusions with overlying atelectasis. 2. Prominence of the pulmonary vasculature suggesting a degree of pulmonary vascular congestion. Correlate with clinical findings. CT head-No evidence of acute intracranial abnormality. Initial lab workup revealed creatinine 1.2, UDS negative, serum alcohol less than 3.0. Urinalysis negative for UTI. Echo 2D revealed LVEF 60-65%, mild LVH. Mild diastolic dysfunction. MRI of the brain-revealed Mild chronic small-vessel supratentorial white matter ischemic changes. Patient's symptom improved with the conservative management. Patient was seen by Neurology, recommendation reviewed and appreciated, no new order received from the neurologist. Patient had tele psych consult today. Patient's meds will be adjusted as per tele psych recommendation. Objective vital signs Vital Sign Date Time Temp Pulse Resp B/P (MAP) Pulse Ox O2 Delivery O2 Flow Rate FiO2 02/10/25 19:09 70 18 99 02/10/25 19:01 Nasal Cannula 2.0 02/10/25 19:01 28 02/10/25 17:00 98.3 150/49 (82) 98.3 Total Intake and Output 02/09/25 02/09/25 02/10/25 15:00 23:00 07:00 Intake Total 740 ml 460 ml Balance 740 ml 460 ml medications Current Medications Medications Dose Ordered Sig/Jose Route Start Time Stop Time Status Last Admin Dose Admin Albuterol 2.5 mg Q6HR NEB 02/08/25 00:00 02/10/25 19:01 2.5 MG Ipratropium Sam[place] 0.5 mg Q6HR NEB 02/08/25 00:00 02/10/25 19:01 0.5 MG Atorvastatin Calcium 40 mg HS PO 02/08/25 22:00 02/09/25 22:07 40 MG EZETIMIBE 10 mg DAILY PO 02/08/25 10:00 Hold 02/08/25 09:18 10 MG Clotrimazole 1 applic Q12HR TOP 02/08/25 10:00 02/10/25 09:36 1 APPLIC Potassium Chloride 100 ml @ 50 mls/hr Q2H IV 02/08/25 03:15 02/08/25 07:14 UNV Benztropine Mesylate 2 mg BID PO 02/08/25 22:00 02/10/25 09:35 2 MG Donepezil HCl 10 mg DAILY PO 02/09/25 10:00 02/10/25 09:35 10 MG Lamotrigine 25 mg BID PO 02/08/25 22:00 02/10/25 09:35 25 MG Quetiapine Fumarate 400 mg HS PO 02/08/25 22:00 02/09/25 22:07 400 MG Sertraline HCl 100 mg HS PO 02/09/25 22:00 02/09/25 22:06 100 MG Topiramate 50 mg HS PO 02/09/25 22:00 02/09/25 22:07 50 MG Gabapentin 600 mg TID PO 02/08/25 22:00 02/10/25 17:34 600 MG Rivaroxaban 20 mg QPM PO 02/08/25 18:00 02/10/25 17:36 20 MG Pantoprazole Sodium 40 mg DAILY IV 02/09/25 10:00 02/10/25 09:35 40 MG Quetiapine Fumarate 100 mg QAM PO 02/09/25 07:00 02/10/25 06:08 100 MG Lorazepam 1 mg ONCE PRN IV 02/09/25 00:00 Examination General examination- awake, alert, oriented HEENT- PEERLA, no acute nasal discharge Cardiovascular- S1-S2 audible, rate and rhythm regular, no murmur Respiratory- CTAB, no wheeze or rhonchi Gastrointestinal-nontender, bowel sound+. Nondistended Musculoskeletal-no acute joint swelling or tenderness or redness Lower extremity- no leg edema Neurological- cranial nerves intact, no acute dysarthria or dysphagia Psychiatry- denies depression or SI or HI Skin- no acute rash or purpura laboratory and microbiology Laboratory Tests 02/10/25 05:52 02/08/25 09:48 Test 02/10/25 05:52 Range/Units Serum Glucose 117 H 74-106 mg/dL Problem List/Assessment/Plan Problem List/Assessment/Plan Assessment and plan Suspected TIA, rule out Parkinson disease Shuffling gait, slurring speech, generalized weakness likely due to TIA/Parkinson's disease Acute hypoxic respiratory failure likely due to acute exacerbation of COPD PANCHITO likely due to VMN Prediabetes, HGB A1c 6.1 COPD, hypertension, heart failure, paroxysmal AFib (chads Vasc 4 /Has bled 2), major depressive disorder, bipolar disorder 12/11/2024- Echo 2D revealed LVEF 60-65%, mild LVH. Mild diastolic dysfunction. 12/12/24- MRI of the brain-revealed Mild chronic small-vessel supratentorial white matter ischemic changes. Plan Continue nebulization as prescribed Titrate NC O2 as required Continue atorvastatin 40 mg p.o. q.h.s. Continue gabapentin 600 mg p.o. t.i.d. Lamotrigine 25 mg p.o. b.i.d. Xarelto 20 mg p.o. q.p.m. Sertraline 200 mg p.o. HS Seroquel 4 mg p.o. HS Topiramate 50 mg p.o. HS Status post neurology consult Ordered tele psych consult for polypharmacy,polypharmacy causing weakness, vs akasthesia. Goals of care, Code status ; discussed with >15 minutes PUD prophylaxis: Pantoprazole DVT prophylaxis: Xarelto Plan discussed with Dr. Cruz , nursing staff, Total time spent on patient evaluation, chart review, assessment and plan, discussion discussion >35 minutes Plan discussed with: Patient, Spouse, Other (RN) My Orders My Orders Orders - JESSICA MAR Procedure Category Date Status Time Abg W/ Co-Ox RT 02/10/25 Logged 14:59 * Associate Trainer CONS 02/10/25 Transmitted Consult Dietary Evaluation Review Comments: elevated A1C, CCHO-60 diet along with the cardiac diet Expected Outcomes/Goals: controlled, glucose levels JESSICA MAR RESIDENT Feb 10, 2025 19:20
--- NOTE | 2025-02-10 22:02 | DVHINCON2 ---
Date of Service if different f: Feb 10, 2025 Time of Service: 14:00 Consultation ([place]) Labs Laboratory Tests Test 02/07/25 14:55 02/07/25 15:03 02/07/25 15:57 02/07/25 18:40 Bedside Glucose 141 mg/dl (70-106) Hemoglobin A1c 6.1 % A1C (<5.7) Lactic Acid Level 1.9 mmol/L (0.4-2.0) Phosphorus Level 3.4 mg/dL (2.4-5.1) Magnesium Level 2.0 mg/dL (1.6-2.6) B-Type Natriuretic Peptide 82.58 pg/mL (0-100) Vitamin B12 Level 505 pg/mL (211-911) Vitamin D 25-Hydroxy 52.9 ng/mL (30.0-100) Thyroid Stimulating Hormone (TSH) 0.27 uIU/mL (0.55-4.78) Plasma/Serum Blood Alcohol < 3.0 mg/dL (<10) Troponin I High Sensitivity 8 ng/L (</=34) Urine Color Light-yellow (Yellow) Urine Clarity Clear (Clear) Urine pH 6.0 (5.0-9.0) Urine Specific [place] 1.012 (1.001-1.035) Urine Protein Negative (Negative) Urine Ketones Negative (Negative) Urine Blood Negative /uL (Negative) Urine Nitrite Negative (Negative) Urine Bilirubin Negative (Negative) Urine Urobilinogen Normal mg/dL (Negative) Urine Leukocyte Esterase Negative /uL (Negative) Urine RBC <1 /hpf (0 - 4) Urine Microscopic WBC 1 /HPF (0-5) Urine Squamous Epithelial Cells None seen /hpf (<5) Urine Bacteria None seen /hpf (None Seen) Urine Glucose Normal mg/dL (Normal) Urine Opiates Screen Neg (NEGATIVE) Urine Fentanyl Screen Neg (NEGATIVE) Urine Barbiturates Screen Neg (NEGATIVE) Urine Phencyclidine Screen Neg (NEGATIVE) Urine Amphetamines Screen Neg (NEGATIVE) Urine Benzodiazepines Screen Neg (NEGATIVE) Urine Cocaine Screen Neg (NEGATIVE) Urine Cannabinoids Screen Neg (NEGATIVE) Influenza Type A Antigen Negative (Negative) Influenza Type B Antigen Negative (Negative) SARS-CoV-2 Antigen (Rapid) Negative (NEGATIVE) Test 02/08/25 09:48 02/10/25 05:52 02/10/25 15:08 White Blood Count 8.0 10^3/uL (4.4-10.8) Red Blood Count 4.18 10^6/uL (4.0-5.20) Hemoglobin 12.7 g/dL (12.2-16.2) Hematocrit 38.9 % (36.0-46.0) Mean Corpuscular Volume 93.1 fL (80.0-100.0) Mean Corpuscular Hemoglobin 30.5 pg (28.0-32.0) Mean Corpuscular Hemoglobin Concent 32.8 g/dL (32.0-36.0) Red Cell Distribution Width 16.2 % (11.8-14.3) Platelet Count 219 10^3/uL (140-450) Mean Platelet Volume 7.8 fL (6.9-10.8) Neutrophils (%) (Auto) 79.9 % (37.0-80.0) Lymphocytes (%) (Auto) 13.4 % (10.0-50.0) Monocytes (%) (Auto) 6.4 % (0.0-12.0) Eosinophils (%) (Auto) 0.1 % (0.0-7.0) Basophils (%) (Auto) 0.2 % (0.0-2.0) Neutrophils # (Auto) 6.4 10 ^3/uL (1.6-8.6) Lymphocytes # (Auto) 1.1 10 ^3/uL (0.4-5.4) Monocytes # (Auto) 0.5 10 ^3/uL (0-1.3) Eosinophils # (Auto) 0 10 ^3/uL (0-0.8) Basophils # (Auto) 0 10 ^3/uL (0-0.2) Nucleated Red Blood Cells 0.1 % Prothrombin Time 10.9 sec (9.3-11.8) Prothromb Time International Ratio 1.03 (0.9-1.15) Activated Partial Thromboplast Time 29.4 SEC (24.5-34.5) Total Bilirubin 0.3 mg/dL (0.2-1.0) Aspartate Amino Transf (AST/SGOT) 19 U/L (13-40) Alanine Aminotransferase (ALT/SGPT) 11 U/L (7-40) Alkaline Phosphatase 80 U/L (46-116) Total Protein 6.7 g/dL (5.7-8.2) Albumin 4.6 g/dL (3.2-4.8) Folic Acid (LAB) 13.21 ng/mL (>5.38) Free Thyroxine (T4) Calculated 0.94 ng/dL (0.89-1.76) Total Triiodothyronine 0.50 ng/mL (0.60-1.81) Sodium Level 145 mmol/L (136-145) Potassium Level 3.7 mmol/L (3.5-5.1) Chloride Level 110 mmol/L (98-107) Carbon Dioxide Level 27 mmol/L (20-31) Anion Gap 8 (5-15) Blood Urea Nitrogen 14 mg/dL (9-23) Creatinine 0.85 mg/dL (0.550-1.02) Glomerular Filtration Rate Calc 72 mL/min (>90) BUN/Creatinine Ratio 16.5 (10.0-20.0) Serum Glucose 117 mg/dL (74-106) Calcium Level 9.5 mg/dL (8.7-10.4) Blood Gas Specimen Type Arterial Blood Gas Sample Site Left radial Blood Gas Patient Temperature 37.0 Arterial Blood Date Drawn [id number] Arterial Blood pH 7.386 (7.350-7.450) Arterial Blood Partial Pressure CO2 40.9 mmHg (32.0-45.0) Arterial Blood Partial Pressure O2 45.3 mmHg (83.0-108.0) Arterial Blood HCO3 24.0 mmol/L (21.0-28.0) Arterial Blood Oxygen Saturation 81.4 % (94.0-98.0) Arterial Blood Base Excess -1.0 mmol/L (-2.0-3.0) Arterial Blood Oxyhemoglobin 80.2 % (94.0-98.0) Arterial Blood Carboxyhemoglobin 1.0 % (0.5-1.5) Arterial Blood Methemoglobin 0.5 % (0.0-1.5) Nehemias Test Yes Blood Gas Total Hemoglobin 13.10 g/dL (12.0-16.0) Blood Gas Modality Room air Blood Gas Spontaneous Rate 18 FiO2 % 21.0 Blood Gas Critical Value Read Back Yes Blood Gas Notified Whom Md. jeff parson Blood Gas Notified Time [id number] Blood Gas Notified By Rt b white Appetite: Fair Side effects of medications: EPS Appearance: Stated age, Groomed Psychomotor activity: WNL Behavioral: Cooperative Eye contact: Appropriate Speech: Mumbled Affect: Mood Congruent Mood: Anxious Thought processes: Linear/Goal-directed Thought content: WNL Suicidal ideations: Absent Homicidal ideations: Absent Orientation: Person, Place, Time, Situation Memory intact: Poor Intellect: Average Abstractability: WNL Concentration: Adequate Attention: Adequate Judgement: WNL Insight: Fair Vitals Vital Signs Date Time Temp Pulse Resp B/P (MAP) Pulse Ox O2 Delivery O2 Flow Rate FiO2 02/10/25 19:09 70 18 99 02/10/25 19:01 Nasal Cannula 2.0 02/10/25 19:01 28 02/10/25 17:00 98.3 150/49 (82) 98.3 Current medications Current Medications Medications Dose Ordered Sig/Jose Route Start Time Stop Time Status Last Admin Dose Admin Albuterol 2.5 mg Q6HR NEB 02/08/25 00:00 02/10/25 19:01 2.5 MG Ipratropium [place] 0.5 mg Q6HR NEB 02/08/25 00:00 02/10/25 19:01 0.5 MG Atorvastatin Calcium 40 mg HS PO 02/08/25 22:00 02/09/25 22:07 40 MG EZETIMIBE 10 mg DAILY PO 02/08/25 10:00 Hold 02/08/25 09:18 10 MG Clotrimazole 1 applic Q12HR TOP 02/08/25 10:00 02/10/25 09:36 1 APPLIC Potassium Chloride 100 ml @ 50 mls/hr Q2H IV 02/08/25 03:15 02/08/25 07:14 UNV Benztropine Mesylate 2 mg BID PO 02/08/25 22:00 02/10/25 09:35 2 MG Donepezil HCl 10 mg DAILY PO 02/09/25 10:00 02/10/25 09:35 10 MG Lamotrigine 25 mg BID PO 02/08/25 22:00 02/10/25 09:35 25 MG Quetiapine Fumarate 400 mg HS PO 02/08/25 22:00 02/09/25 22:07 400 MG Sertraline HCl 100 mg HS PO 02/09/25 22:00 02/09/25 22:06 100 MG Topiramate 50 mg HS PO 02/09/25 22:00 02/09/25 22:07 50 MG Gabapentin 600 mg TID PO 02/08/25 22:00 02/10/25 17:34 600 MG Rivaroxaban 20 mg QPM PO 02/08/25 18:00 02/10/25 17:36 20 MG Pantoprazole Sodium 40 mg DAILY IV 02/09/25 10:00 02/10/25 09:35 40 MG Quetiapine Fumarate 100 mg QAM PO 02/09/25 07:00 02/10/25 06:08 100 MG Lorazepam 1 mg ONCE PRN IV 02/09/25 00:00 Treatment plan discussed: Family Medication adjusted: Yes Diagnosis: unspecified mood disorder, unspecified anxiety disorder, r/o dementia Plan : Patient denies any current mood symptoms. She likely has early signs of dementia with memory impairments Discussed lowering doses of medications and she refuses to do this. Recommend to follow up with her mental health provider for medication management or consider titrating seroquel down to 300mg po qhs. Pt is receiving Cogentin which can help with EPS but does not help with TD, recommend lowering to 1mg po BID re-eval or follow up with outpatient mental health provider History of Present Illness Reason for Consult : Patient with reported hx of bipolar disorder, dementia, and recent cognitive decline. HPI : This is a 74-year-old female with reported hx of bipolar disorder, multip le medical problems, and presents here with generalized weakness, and possible poly-pharmacy. Patient is evaluated via telepsychiatry with at bedside. and patient reports symptoms of slurrying speech, dropping things out of her hand, shaking hands, and falling down for the past 3 months with worsening symptoms the last 3 weeks. Patient denies any recent medication changes. She reports current psychotropic medication were all started over one year ago. Patient had trouble with recalling events, such as reporting moving back from [place] 3 months ago but reports one year ago, January 2024. Patient reports hx of bipolar disorder with prior hx of zofia but could not recall her symptoms. reports for 40 years and he denies any history of zofia. Patient reported suicide attempt 30 years ago and denies. Patient does report without her psychotropic medication, she is very anxious, depressive symptoms including suicidal ideation. She is apprehensive about lowering doses. She is sleeping well with current med regime. She reports appetite us intact. On AIMS test, facial and oral movement were intact. She did have periods of speaking then slurry her speech. Patient observed with tremor of left digit finger of left hand. Patient denies feeling depressed, hopeless, she is concerned with her health issues. She denies suicidal/homicidal ideation. She denies auditory hallucinations. reports, periods of reporting he was in the room when he was not. Also reported seeing something on paper that was not there. reports memory problems are worsening and he cannot rely on what she says. Patient is now Aricept and told she may have early signs of dementia per . They do not recall when Aricept was started. Past Psychiatric History : She reports hx of bipolar disorder and anxiety. She denies prior psych admissions or holds. She reports suicide attempt 30years ago with OD on xanax but denies this. She has current outpatient mental health follow up at [facility] and compliant with follow up monthly. She is prescribed seroquel 100mg qam, 400mg po qhs. Topamax 50mg, sertraline 100mg daily, Lamictal 25mg BID. Cogentin 2mg BID. Past Medical History : Per history and physical Social History : Patient is for 40 years and lives at home with . They have adult children. She denies any use of alcohol or other substances. They deny any known family history GLENNA GALLOWAY [facility] Feb 10, 2025 22:02
--- NOTE | 2025-02-10 22:49 | DVHPN2 ---
Progress Note - Dictate Date Seen: Feb 10, 2025 Medical Necessity Reason Pt with a Central, PICC or Fol: No The following are medically ne: Miller Catheter Subjective Ms. Caldwell is a 74 years old right-handed female with a history of hypertension, diabetes, dyslipidemia, bipolar disorder, COPD, AFib, skin cancer, she was brought to the [facility] on 02/07/2025 with a chief company of general weakness. I have seen and examined the patient, discussed with her nurse, she reports doing fine, oriented times 2-3, good social skills, she remembers our conversation from yesterday Again she complaints of tremors in both hands affecting her life and she wants to have a trial of treatment before she leaves for home tomorrow UDS, 02/07/2025: Negative Plasma alcohol, 02/07/2025: Normal Urinalysis, 02/07/2025: Unremarkable CBC, 02/08/2025: Unremarkable CMP, 02/08/2025: Unremarkable Vitamin B12, 02/07/25: 505 Folic acid, 02/08/2025: 13.21 FT4, 02/08/25: 0.95 Echocardiogram, 02/08/2025: Tissue Doppler imaging reveals normal left ventricular function. Left ventricle systolic function is normal. The Ejection Fraction is 60-65%. There is mild LVH Mild diastolic dysfunction Normal RV function mildly dilated mildly dilated moderate pulm htn rvsp 45-[address] head, 02/07/2025: No evidence of acute intracranial abnormality MRI head, 02/09/2025: 1. There is no acute intracranial process. 2. Mild chronic small-vessel supratentorial white matter ischemic changes. vital signs Vital Sign Date Time Temp Pulse Resp B/P (MAP) Pulse Ox O2 Delivery O2 Flow Rate FiO2 02/10/25 21:00 99.4 70 18 164/53 (90) 92 99.4 02/10/25 19:01 Nasal Cannula 2.0 02/10/25 19:01 28 Total Intake and Output 02/09/25 02/09/25 02/10/25 15:00 23:00 07:00 Intake Total 740 ml 460 ml Balance 740 ml 460 ml medications Current Medications Medications Dose Ordered Sig/Jose Route Start Time Stop Time Status Last Admin Dose Admin Albuterol 2.5 mg Q6HR NEB 02/08/25 00:00 02/10/25 19:01 2.5 MG Ipratropium [place] 0.5 mg Q6HR NEB 02/08/25 00:00 02/10/25 19:01 0.5 MG Atorvastatin Calcium 40 mg HS PO 02/08/25 22:00 02/09/25 22:07 40 MG EZETIMIBE 10 mg DAILY PO 02/08/25 10:00 Hold 02/08/25 09:18 10 MG Clotrimazole 1 applic Q12HR TOP 02/08/25 10:00 02/10/25 09:36 1 APPLIC Potassium Chloride 100 ml @ 50 mls/hr Q2H IV 02/08/25 03:15 02/08/25 07:14 UNV Benztropine Mesylate 2 mg BID PO 02/08/25 22:00 02/10/25 09:35 2 MG Donepezil HCl 10 mg DAILY PO 02/09/25 10:00 02/10/25 09:35 10 MG Lamotrigine 25 mg BID PO 02/08/25 22:00 02/10/25 09:35 25 MG Quetiapine Fumarate 400 mg HS PO 02/08/25 22:00 02/09/25 22:07 400 MG Sertraline HCl 100 mg HS PO 02/09/25 22:00 02/09/25 22:06 100 MG Topiramate 50 mg HS PO 02/09/25 22:00 02/09/25 22:07 50 MG Gabapentin 600 mg TID PO 02/08/25 22:00 02/10/25 17:34 600 MG Rivaroxaban 20 mg QPM PO 02/08/25 18:00 02/10/25 17:36 20 MG Pantoprazole Sodium 40 mg DAILY IV 02/09/25 10:00 02/10/25 09:35 40 MG Quetiapine Fumarate 100 mg QAM PO 02/09/25 07:00 02/10/25 06:08 100 MG Lorazepam 1 mg ONCE PRN IV 02/09/25 00:00 objective General: the patient is well developed and nourished. No acute distress. MENTAL STATUS: Subjective SPEECH, LANGUAGE, HIGHER CORTICAL FUNCTION: no aphasia or dysathria. CRANIAL NERVES: Pupils are equal, round and reactive. EOMs full and conjugate. No nystagmus. Facial sensation intact in all three divisions bilaterally. Mandibular strength intact. Facial muscles symmetrical and strength intact. SENSATION: Sensation to touch and pinprick is normal. MOTOR: Normal tone in the upper and lower extremity. Normal muscle bulk. No fasciculations. Mild tremors in the arms and posturing. Muscle strength of the major groups in the extremities is 5/5. REFLEXES: Deep tendon reflexes normal and symmetrical. No pathological reflexes. CEREBELLAR/COORDINATION: Finger to nose isnormal bilaterally. GAIT/STATION: deferred. laboratory and microbiology Laboratory Tests 02/10/25 05:52 02/08/25 09:48 Test 02/10/25 05:52 Range/Units Serum Glucose 117 H 74-106 mg/dL Problem List General weakness Fall/gait disturbance Cognitive dysfunction, not convincing per my observation, Bipolar disorder Tremors, likely essential tremor Assessment/Plan Monitoring Supportive treatment Telemetry A trial of [place] 25 mg HS Aricept 10 mg daily for now Continuing her psychiatric medications I do not recommend essential tremor treatment at this time Up to chair Physical therapy More recommendation per clinical course Complicated follow-up This medical document was created using an electronic medical record system with [employer] dictation system. Although this document has been carefully reviewed, there may still be some phonetic and typographical errors. These areas are purely typographical due to imperfections of the software programs, and do not reflect any compromise in the patient's medical care. Prognosis poor Dietary Evaluation Review Comments: elevated A1C, CCHO-60 diet along with the cardiac diet Expected Outcomes/Goals: controlled, glucose levels Plan discussed with: Patient, Other EDVIN VAN MD Feb 10, 2025 22:49
[2025-02-10] MEDS: PRIMIDONE 50 MG TAB PO ONE (23:45)
[2025-02-11] VITALS (8 sets, daily range): BP systolic 102–164; BP diastolic 30–56; PULSE 56–70; RESP 17–19; TEMP 36.8; O2SAT 93–97
[2025-02-11 07:19] LABS: Potassium 3.8 mmol/L (3.5-5.1); Sodium 144 mmol/L (136-145)
[2025-02-11 07:20] LABS: Anion Gap 9 (5-15); Calcium 9.6 mg/dL (8.7-10.4); Carbon Dioxide 26 mmol/L (20-31)
[2025-02-11 07:25] LABS: BUN/Creatinine Ratio 19.3 (10.0-20.0); Blood Urea Nitrogen 17 mg/dL (9-23)
[2025-02-11 07:31] LABS: Chloride 109 mmol/L (98-107); Glucose 113 mg/dL (74-106)
--- NOTE | 2025-02-11 09:21 | CONS ---
Pharmacy Clinical Information: From Heart Failure Potential Fallout on CQM Application, Louisa Caldwell is a 74 year old female with PMH of DM, COPD, HTN, HF, MDD, paroxysmal Afib. Her home medications for diabetes include metformin and dapagliflozin. Her HbA1lc from 02/07/25 was 6.1% within goal. Her serum glucose ranges <180 mg/dL. According to 2024 ADA guidelines, insulin and/or other glucose lowering therapies should be initiated or intensified for treatment of persistent h yperglycemia starting at a threshold of >180 mg/dL for the majority of noncritically ill hospitalized individuals. Antihypergylcemic agent not recommended at this time. JEANNIE VAIL PHARMACIST Feb 11, 2025 09:21
--- NOTE | 2025-02-11 11:49 | DVHDSRES ---
Discharge Summary Date of Admission Resident Creating Document: JESSICA PARSON RESIDENT Feb 07, 2025 at 21:41 Date of Discharge: Feb 10, 2025 Admitting Diagnosis Suspected TIA Labs/Diagnostic Data: Laboratory Results Test 02/11/25 05:45 02/10/25 15:08 02/08/25 09:48 02/07/25 18:40 Sodium Level 144 mmol/L (136-145) Potassium Level 3.8 mmol/L (3.5-5.1) Chloride Level 109 mmol/L (98-107) Carbon Dioxide Level 26 mmol/L (20-31) Anion Gap 9 (5-15) Blood Urea Nitrogen 17 mg/dL (9-23) Creatinine 0.88 mg/dL (0.550-1.02) Glomerular Filtration Rate Calc 69 mL/min (>90) BUN/Creatinine Ratio 19.3 (10.0-20.0) Serum Glucose 113 mg/dL (74-106) Calcium Level 9.6 mg/dL (8.7-10.4) Blood Gas Specimen Type Arterial Blood Gas Sample Site Left radial Blood Gas Patient Temperature 37.0 Arterial Blood Date Drawn [id number] Arterial Blood pH 7.386 (7.350-7.450) Arterial Blood Partial Pressure CO2 40.9 mmHg (32.0-45.0) Arterial Blood Partial Pressure O2 45.3 mmHg (83.0-108.0) Arterial Blood HCO3 24.0 mmol/L (21.0-28.0) Arterial Blood Oxygen Saturation 81.4 % (94.0-98.0) Arterial Blood Base Excess -1.0 mmol/L (-2.0-3.0) Arterial Blood Oxyhemoglobin 80.2 % (94.0-98.0) Arterial Blood Carboxyhemoglobin 1.0 % (0.5-1.5) Arterial Blood Methemoglobin 0.5 % (0.0-1.5) Nehemias Test Yes Blood Gas Total Hemoglobin 13.10 g/dL (12.0-16.0) Blood Gas Modality Room air Blood Gas Spontaneous Rate 18 FiO2 % 21.0 Blood Gas Critical Value Read Back Yes Blood Gas Notified Whom Md. jeff parson Blood Gas Notified Time [id number] Blood Gas Notified By Rt jolene white White Blood Count 8.0 10^3/uL (4.4-10.8) Red Blood Count 4.18 10^6/uL (4.0-5.20) Hemoglobin 12.7 g/dL (12.2-16.2) Hematocrit 38.9 % (36.0-46.0) Mean Corpuscular Volume 93.1 fL (80.0-100.0) Mean Corpuscular Hemoglobin 30.5 pg (28.0-32.0) Mean Corpuscular Hemoglobin Concent 32.8 g/dL (32.0-36.0) Red Cell Distribution Width 16.2 % (11.8-14.3) Platelet Count 219 10^3/uL (140-450) Mean Platelet Volume 7.8 fL (6.9-10.8) Neutrophils (%) (Auto) 79.9 % (37.0-80.0) Lymphocytes (%) (Auto) 13.4 % (10.0-50.0) Monocytes (%) (Auto) 6.4 % (0.0-12.0) Eosinophils (%) (Auto) 0.1 % (0.0-7.0) Basophils (%) (Auto) 0.2 % (0.0-2.0) Neutrophils # (Auto) 6.4 10 ^3/uL (1.6-8.6) Lymphocytes # (Auto) 1.1 10 ^3/uL (0.4-5.4) Monocytes # (Auto) 0.5 10 ^3/uL (0-1.3) Eosinophils # (Auto) 0 10 ^3/uL (0-0.8) Basophils # (Auto) 0 10 ^3/uL (0-0.2) Nucleated Red Blood Cells 0.1 % Prothrombin Time 10.9 sec (9.3-11.8) Prothrombin Time INR 1.03 (0.9-1.15) Activated Partial Thromboplast Time 29.4 SEC (24.5-34.5) Total Bilirubin 0.3 mg/dL (0.2-1.0) Aspartate Amino Transferase (AST) 19 U/L (13-40) Alanine Aminotransferase (ALT) 11 U/L (7-40) Alkaline Phosphatase 80 U/L (46-116) Total Protein 6.7 g/dL (5.7-8.2) Albumin 4.6 g/dL (3.2-4.8) Folic Acid 13.21 ng/mL (>5.38) Free Thyroxine (T4) Calculated 0.94 ng/dL (0.89-1.76) Total Triiodothyronine (TT3) 0.50 ng/mL (0.60-1.81) Urine Color Light-yellow (Yellow) Urine Clarity Clear (Clear) Urine pH 6.0 (5.0-9.0) Urine Specific [place] 1.012 (1.001-1.035) Urine Protein Negative (Negative) Urine Ketones Negative (Negative) Urine Blood Negative /uL (Negative) Urine Nitrite Negative (Negative) Urine Bilirubin Negative (Negative) Urine Urobilinogen Normal mg/dL (Negative) Urine Leukocyte Esterase Negative /uL (Negative) Urine RBC <1 /hpf (0 - 4) Urine Microscopic WBC 1 /HPF (0-5) Urine Squamous Epithelial Cells None seen /hpf (<5) Urine Bacteria None seen /hpf (None Seen) Urine Glucose Normal mg/dL (Normal) Urine Opiates Screen Neg (NEGATIVE) Urine Fentanyl Screen Neg (NEGATIVE) Urine Barbiturates Screen Neg (NEGATIVE) Urine Phencyclidine Screen Neg (NEGATIVE) Urine Amphetamines Screen Neg (NEGATIVE) Urine Benzodiazepines Screen Neg (NEGATIVE) Urine Cocaine Screen Neg (NEGATIVE) Urine Cannabinoids Screen Neg (NEGATIVE) Influenza Type A Antigen Negative (Negative) Influenza Type B Antigen Negative (Negative) SARS-CoV-2 Antigen (Rapid) Negative (NEGATIVE) Test 02/07/25 15:57 02/07/25 15:03 02/07/25 14:55 Troponin I High Sensitivity 8 ng/L (</=34) Hemoglobin A1c 6.1 % A1C (<5.7) Lactic Acid Level 1.9 mmol/L (0.4-2.0) Phosphorus Level 3.4 mg/dL (2.4-5.1) Magnesium Level 2.0 mg/dL (1.6-2.6) B-Type Natriuretic Peptide 82.58 pg/mL (0-100) Vitamin B12 Level 505 pg/mL (211-911) Vitamin D 25-Hydroxy 52.9 ng/mL (30.0-100) Thyroid Stimulating Hormone (TSH) 0.27 uIU/mL (0.55-4.78) Plasma/Serum Blood Alcohol < 3.0 mg/dL (<10) POC Glucose 141 mg/dl (70-106) Other Laboratory Tests 02/11/25 05:45 02/08/25 09:48 Brief Hx & Hospital Course: Hospital course-Stevie Vee is a 74-year-old female COPD, hypertension, heart failure, paroxysmal AFib (chads Vasc 4 /Has bled 2), major depressive disorder, bipolar disorder presented to the ED with a chief complaint of cognitive and memory deficit and generalized weakness. As per patient and patient went over to her son's house while she was feeling different. Patient was sliding down from the chair, could not keep balance when walking, having dysarthria and feeling tired. Patient reported that this has been going on for almost 3 months but yesterday was really worse. Patient's has been reports that since the last 3-4 months patient has been having declining cognition and worsening memory function but it has gotten worse in the last 2 weeks with the associated difficulty walking with the patient taking short shuffling steps, associated with the flu-like symptoms of body aches and generalized weakness. Patient reports that she forgets recent things and her long-term memory is intact. CXR-Blunting of the costophrenic angles bilaterally, suspected small bilateral pleural effusions with overlying atelectasis. 2. Prominence of the pulmonary vasculature suggesting a degree of pulmonary vascular congestion. Correlate with clinical findings. CT head-No evidence of acute intracranial abnormality. Initial lab workup revealed creatinine 1.2, UDS negative, serum alcohol less than 3.0. Urinalysis negative for UTI. Echo 2D revealed LVEF 60-65%, mild LVH. Mild diastolic dysfunction. MRI of the brain-revealed Mild chronic small-vessel supratentorial white matter ischemic changes. Patient's symptom improved with the conservative management. Patient was seen by Neurology, recommendation reviewed and appreciated, no new order received from the neurologist. Hospital course-Stevie Vee is a 74-year-old female COPD, hypertension, heart failure, paroxysmal AFib (chads Vasc 4 /Has bled 2), major depressive disorder, bipolar disorder presented to the ED with a chief complaint of cognitive and memory deficit and generalized weakness. As per patient and patient went over to her son's house while she was feeling different. Patient was sliding down from the chair, could not keep balance when walking, having dysarthria and feeling tired. Patient reported that this has been going on for almost 3 months but yesterday was really worse. Patient's has been reports that since the last 3-4 months patient has been having declining cognition and worsening memory function but it has gotten worse in the last 2 weeks with the associated difficulty walking with the patient taking short shuffling steps, associated with the flu-like symptoms of body aches and generalized weakness. Patient reports that she forgets recent things and her long-term memory is intact. CXR-Blunting of the costophrenic angles bilaterally, suspected small bilateral pleural effusions with overlying atelectasis. 2. Prominence of the pulmonary vasculature suggesting a degree of pulmonary vascular congestion. Correlate with clinical findings. CT head-No evidence of acute intracranial abnormality. Initial lab workup revealed creatinine 1.2, UDS negative, serum alcohol less than 3.0. Urinalysis negative for UTI. Echo 2D revealed LVEF 60-65%, mild LVH. Mild diastolic dysfunction. MRI of the brain-revealed Mild chronic small-vessel supratentorial white matter ischemic changes. Patient's symptom improved with the conservative management. Patient was seen by Neurology, recommendation reviewed and appreciated, no new order received from the neurologist. Patient had a tele psych consult, recommended to reduce Seroquel from 400-300 mg q.h.s.. Neurologist recommended mysoline 25 mg p.o. q.h.s.. Patient's meds were sent to the pharmacy electronically. Patient was advised to follow up with the primary care physician in 1 week, with a psychiatrist in 2-3 weeks and neurologist in 2-3 weeks. Patient was hemodynamically stable on discharge Assessment Possible akathisia/polypharmacy side effect Acute hypoxic respiratory failure likely due to acute exacerbation of COPD Ruled out TIA, ruled out Parkinson disease generalized weakness likely due to polypharmacy/akinesia PANCHITO likely due to VMN Prediabetes, COPD, hypertension, heart failure, paroxysmal AFib major depressive disorder, bipolar disorder Plan Continue Seroquel 300 mg q.h.s. Continue Cogentin 1 mg p.o. b.i.d. Mysoline 25 mg at HS Please resume other home medication not mentioned above Please follow up with the primary care physician in 1 week Please follow up with your psychiatrist in 2-3 weeks Please follow up with your neurologist in 2-3 weeks Please avoid dehydration and nephrotoxic drugs Operations or Procedures [facility] [address] [facility] [address] Ph: [phone] DIAGNOSTIC IMAGING Diagnostic Imaging Report : [id number] Signed PATIENT: MARY VEET: [id number] UNIT: [id number] : 1950 LOC: [facility] ROOM / BED: [address] [place] [address] A AGE / SEX: 74 / F ADM STATUS: ADM IN SERVICE 31 ORDERING PHYSICIAN: TESSY DANG RESIDENT PROCEDURE(s): ECIDC - ECHO 2D MODE CARDIAC DOP REASON: SOB ORDER NUMBER(s): [id number], ACCESSION NUMBER(s): [id number] APPROVED REPORT EXAM: Two-dimensional and M-mode echocardiogram with Doppler and color Doppler. Blood Pressure: 112/53 mmHg INDICATION Dyspnea SOB RISK FACTORS Height: 5'2", Weight: 147 DIMENSIONS LVDd 5.1 (3.8-5.7cm) LA (2D) 4.1 (1.9-4.0cm) Aortic Root 3.5 (2.0- 3.7cm) LVDs 3.3 (2.5-4.0cm) LA (MM) (1.9-4.0cm) Aortic Cusp Exc 1.6 (1.5- 2.0cm) EF (%) 65.0 (55-70%) Rt. Atrium 3.9 (1.9-4.0cm) Asc. Aorta cm IVSd 1.0 (0.7-1.1cm) RV (D) (1.8-2.4cm) PWd 1.0 (0.7-1.1cm) Mitral Valve Mitral Mitral Stenosis E wave 1.32m/s MV Mean GR. mmHg A wave 0.97m/s MV Peak GR. mmHg E/A ratio 1.4 2D MVA cm2 DECEL Time 218ms PRESS 1/2 Time ms Aortic Valve Aortic Valve Aortic Stenosis V1 1.12m/s AO Mean GR. 6mmHg V2 1.76m/s AO Peak GR. 12mmHg LVOT Diameter 1.8 (1.8-2.4cm) Doppler RIKKI 1.62cm2 Pulmonic Valve V2 1.14m/s Tricuspid Valve TR Velocity 3.19m/s RVSP 44mmHg LEFT VENTRICLE Tissue Doppler imaging reveals normal left ventricular function. Left ventricle systolic function is normal. The Ejection Fraction is 60-65%. RIGHT VENTRICLE Normal ATRIA mildly dilated mildly dilated TRICUSPID VALVE moderate pulm htn rvsp 45-50 mmgh Other Information Technically limited study due to body habitus. Conclusion Tissue Doppler imaging reveals normal left ventricular function. Left ventricle systolic function is normal. The Ejection Fraction is 60-65%. There is mild LVH Mild diastolic dysfunction Normal RV function mildly dilated mildly dilated moderate pulm htn rvsp 45-50 mmgh SIGNED BY: ANTHONY HANDY MD SIGNED DATE/TIME: 02/08/25 1809 CC: [place] [address] Ph: [phone] DIAGNOSTIC IMAGING Diagnostic Imaging Report : [id number] Signed PATIENT: STEVIE VEEACCT: [id number] UNIT: [id number] : 1950 LOC: [facility] AGE / SEX: 74 / F ADM STATUS: ADM IN SERVICE 1973 ORDERING PHYSICIAN: EDVIN VAN MD PROCEDURE(s): MBHL - BRAIN HEAD WO CONTRAST REASON: weakness, ? dementia ORDER NUMBER(s): [id number], ACCESSION NUMBER(s): [id number] EXAMINATION: MRI BRAIN HEAD WO CONTRAST INDICATION: weakness, dementia COMPARISON: CT head 01/2025 TECHNIQUE: Multiplanar, multisequence magnetic resonance imaging of the brain was performed without the use of intravenous contrast. FINDINGS: There is no restricted diffusion. There are mild chronic small-vessel ischemic changes in the supratentorial white matter. There is no evidence of hemorrhage, mass, mass effect or midline shift. There is no hydrocephalus or extra-axial fluid collection. The visualized intracranial vasculature demonstrates appropriate flow-voids. The sagittal midline structures appear unremarkable. The craniocervical junction is within normal limits. The calvarium demonstrates normal marrow signal. The paranasal sinuses and mastoid air cells are clear. IMPRESSION: 1. There is no acute intracranial process. 2. Mild chronic small-vessel supratentorial white matter ischemic changes. HS:Y ATED BY: ANI MISHRA MD DICTATED DATE/TIME: 02/09/25 1144 SIGNED BY: ANI MISHRA MD SIGNED DATE/TIME: 02/09/25 1144 CC: [place] [address] Ph: [phone] DIAGNOSTIC IMAGING Diagnostic Imaging Report : [id number] Signed PATIENT: MARY VEET: [id number] UNIT: [id number] : 1950 LOC: ER ROOM / BED: / AGE / SEX: 74 / F ADM STATUS: REG ER SERVICE 1451 ORDERING PHYSICIAN: CHIN PARKER MD PROCEDURE(s): HWOCT - HEAD WITHOUT CONTRAST REASON: weakness ORDER NUMBER(s): [id number], ACCESSION NUMBER(s): [id number] Procedure: CT HEAD WITHOUT CONTRAST Study Date and Requested Time: 02/07/2025 05:02 PM History: weakness Comparison: HEAD WITHOUT CONTRAST on DOS: 09/13/20 Dose: CTDI: 57.8 mGy DLP: 1139.09 mGycm Technique: Multiplanar images obtained through the brain without intravenous contrast. Findings: Normal brain volume and formation. Mild chronic small vessel ischemic changes. Bilateral basal ganglia physiologic calcification. No hemorrhages, masses, mass effect, midline shift, herniation or cytotoxic edema following a large vascular territory. No intra-axial or extra-axial fluid collections. No evidence of hydrocephalus. The basal cisterns are patent. The pituitary gland, sella and parasellar regions are unremarkable. The cerebellar tonsils are in normal position. The cerebellum is unremarkable. The orbits and globes are unremarkable. The paranasal sinuses and mastoids are clear. There are no worrisome calvarial lesions. Impression: No evidence of acute intracranial abnormality. ATED BY: EDYTA HUNTER DO DICTATED DATE/TIME: 02/07/251735 SIGNED BY: EDYTA HUNTER DO SIGNED DATE/TIME: 02/07/251735 CC: [address] [address] Ph: [phone] DIAGNOSTIC IMAGING Diagnostic Imaging Report : [id number] Signed PATIENT: STEVIE VEEACCT: [id number] UNIT: [id number] : 1950 LOC: ER ROOM / BED: / AGE / SEX: 74 / F ADM STATUS: REG ER SERVICE 1451 ORDERING PHYSICIAN: CHIN PARKER MD PROCEDURE(s): CXRP - CHEST PORTABLE REASON: weakness ORDER NUMBER(s): [id number], ACCESSION NUMBER(s): [id number] CLINICAL INFORMATION: 74 years old, Female; weakness. TECHNIQUE: Single AP portable chest radiograph was obtained. COMPARISON: CHEST PORTABLE on DOS: 09/13/20 FINDINGS: Lungs: Minimal blunting of the costophrenic angles bilaterally, possible small bilateral pleural effusions with overlying atelectasis. Cardiac: Cardiac silhouette is at the upper limits of normal in size, likely accentuated due to portable AP technique. Pulmonary vasculature: Mild prominence of the pulmonary vasculature. Mediastinum/dominique: Moderate atherosclerotic calcification of the aortic arch. Bones: No acute osseous abnormality identified. Other: No other significant findings. IMPRESSION: 1. Blunting of the costophrenic angles bilaterally, suspected small bilateral pleural effusions with overlying atelectasis. 2. Prominence of the pulmonary vasculature suggesting a degree of pulmonary vascular congestion. Correlate with clinical findings. ATED BY: JOSE KILLIAN DO DICTATED DATE/TIME: 02/07/251613 SIGNED BY: JOSE KILLIAN DO SIGNED DATE/TIME: 02/07/251613 CC: Condition at Discharge: Stable Final Diagnosis/Problems List Possible akathisia/polypharmacy side effect Acute hypoxic respiratory failure likely due to acute exacerbation of COPD Ruled out TIA, ruled out Parkinson disease generalized weakness likely due to polypharmacy/akinesia PANCHITO likely due to VMN Prediabetes, COPD, hypertension, heart failure, paroxysmal AFib major depressive disorder, bipolar disorder Discharge Disposition: Home Discharge Instruct/Medications Diet: Consistent carbohydrate, Cardiac 2g Na,low cholest Activity: No Restrictions, As Tolerated Follow Up/Referral: Continue Seroquel 300 mg q.h.s. Continue Cogentin 1 mg p.o. b.i.d. Mysoline 25 mg at HS Please resume other home medication not mentioned above Please follow up with the primary care physician in 1 week Please follow up with your psychiatrist in 2-3 weeks Please follow up with your neurologist in 2-3 weeks Please avoid dehydration and nephrotoxic drugs Medications: Continue Seroquel 300 mg q.h.s. Continue Cogentin 1 mg p.o. b.i.d. Mysoline 25 mg at HS Please resume other home medication not mentioned above Discharge Statement: "Patient was advised to return to the ER or call 911 if any headaches, dizziness, shortness of breath, chest pain, abdominal pain, bleeding, fevers, or worsening of medical condition. Patient was counseled about treatment plan, medications, possible side effects, patientverbalized understanding. All questions were answered to the best of my ability. This discharge took greater then 30 minutes in planning, reviewing documentation, counseling the patient, and discussing with other team members." ASSESSMENT ASSESSMENT Assessment Possible akathisia/polypharmacy side effectAcute hypoxic respiratory failure likely due to acute exacerbation of COPDRuled out TIA, ruled out Parkinson disease generalized weakness likely due to polypharmacy/akinesiaAKI likely due to VMNPrediabetes, COPD, hypertension, heart failure, paroxysmal AFib major depressive disorder, bipolar disorder JESSICA PARSON RESIDENT Feb 11, 2025 11:49
[2025-02-11] MEDS ORDERED: QUET300T14 PO (11:51)
[2025-02-11] MEDS ORDERED: PRIM50TA27 PO (11:51)
[2025-02-11] MEDS ORDERED: PRIMIDONE 50 MG TAB PO SCH (22:00)
[2025-02-11] MEDS ORDERED: QUEtiapine FUMARATE 100 MG TAB PO SCH (22:00)
== END 2025-02-11 15:03 | disposition home or self-care (01) | DRG 56 ==
LOC: ER 14:43 → EDBD 14:43 → OVERFLOW 21:41 → TELE-CENTR 02-08 02:20
PROVIDERS: ADMIT Student in an Organized Health Care Education/Training Program; ATTEND Student in an Organized Health Care Education/Training Program
DX: G25.71 Drug induced akathisia (principal); J96.21 Acute and chronic respiratory failure with hypoxia; N17.0 Acute kidney failure with tubular necrosis; J44.1 Chronic obstructive pulmonary disease with (acute) exacerbation; I13.0 Hypertensive heart and chronic kidney disease with heart failure and stage 1 through stage 4 chronic kidney disease, or unspecified chronic kidney disease; F03.94 Unspecified dementia, unspecified severity, with anxiety; Z20.822 Contact with and (suspected) exposure to COVID-19; I50.9 Heart failure, unspecified; N18.9 Chronic kidney disease, unspecified; I48.0 Paroxysmal atrial fibrillation; F32.9 Major depressive disorder, single episode, unspecified; R26.9 Unspecified abnormalities of gait and mobility; T50.995A Adverse effect of other drugs, medicaments and biological substances, initial encounter; F17.200 Nicotine dependence, unspecified, uncomplicated; E87.6 Hypokalemia; R29.898 Other symptoms and signs involving the musculoskeletal system; E78.5 Hyperlipidemia, unspecified; E11.65 Type 2 diabetes mellitus with hyperglycemia; Z79.899 Other long term (current) drug therapy; Z90.49 Acquired absence of other specified parts of digestive tract; Z85.828 Personal history of other malignant neoplasm of skin; Y92.89 Other specified places as the place of occurrence of the external cause
CPT/HCPCS: 36415; 36600; 70450; 70551; 71045; 80048; 80053; 80307; 80320; 81001; 82306; 82607; 82746; 82805; 82962; 83036; 83605; 83735; 83880; 84100; 84439; 84443; 84480; 84484; 85025; 85610; 85730; 87426; 87804; 93005; 93306; 94640; 96365; 96372; 96375; 97110; 97116; 97163; 99291; G0378; J2470; J3480